=== PATIENT | male | born 1975 | race Asian ===

== ENCOUNTER 2021-04-01 10:25 | Inpatient (IN) | payer MEDICARE, MEDICAID ==
[~2021-04-01] VITALS: Ht 160 cm; Wt 74.4 kg
[2021-04-01] MEDS ORDERED: ZOLPIDEM TARTRATE 10 MG TABLET PO PRN (17:15)
[2021-04-01 18:17] VITALS: BP 144/96
[2021-04-01] MEDS: LORazepam 2 MG TABLET PO PRN (18:34)
[2021-04-01] MEDS: HALOPERIDOL 5 MG TABLET PO PRN (18:34)
[2021-04-02] MEDS: HALOPERIDOL 5 MG TABLET PO PRN ×4 (02:27→16:28)
[2021-04-02] MEDS: LORazepam 2 MG TABLET PO PRN ×3 (02:27→16:28)
[2021-04-02 09:00] VITALS: BP 143/87
[2021-04-02 16:28] VITALS: BP 124/81
[2021-04-02] MEDS ORDERED: CloNIDine HCL 0.1 MG TABLET PO PRN (21:30)
[2021-04-02] MEDS ORDERED: LOPERAMIDE HCL 2 MG CAPSULE PO PRN (21:30)
[2021-04-02] MEDS ORDERED: MAGNESIUM HYDROXIDE SUSPENSION 30 ML UDCUP PO PRN (21:30)
[2021-04-02] MEDS ORDERED: BACITRACIN 28 GM OINTMENT TP PRN (21:30)
[2021-04-02] MEDS ORDERED: ALBUTEROL SULFATE HFA 90 MCG/PUFF 8 GM INHALER IH PRN (21:30)
[2021-04-02] MEDS ORDERED: BENZOCAINE/MENTHOL LOZENGE PO PRN (21:30)
[2021-04-02] MEDS ORDERED: ACETAMINOPHEN 325 MG TABLET PO PRN (21:30)
[2021-04-02] MEDS ORDERED: DOCUSATE SODIUM 100 MG CAPSULE PO PRN (21:30)
[2021-04-02] MEDS ORDERED: OMEPRAZOLE 20 MG CAPSULE PO PRN (21:30)
[2021-04-02] MEDS ORDERED: IBUPROFEN 600 MG TABLET PO PRN (21:30)
[2021-04-02] MEDS ORDERED: MAG HYDROX/AL HYDROX/SIMETH ES 30 ML SUSPENSION UDCUP PO PRN (21:30)
[2021-04-02] MEDS ORDERED: ONDANSETRON HCL 4 MG TABLET PO PRN (21:30)
[2021-04-02] MEDS ORDERED: PETROLATUM,WHITE 28 GM JELLY TP PRN (21:30)
[2021-04-02] MEDS ORDERED: DIVA-80 PO (23:16)
[2021-04-03 01:14] VITALS: BP 132/85
[2021-04-03] MEDS: HALOPERIDOL 5 MG TABLET PO PRN (07:56)
[2021-04-03] MEDS: LORazepam 2 MG TABLET PO PRN ×3 (07:56→17:41)
[2021-04-03 08:08] VITALS: BP 139/99
[2021-04-03 08:12] VITALS: BP 139/99
[2021-04-03] MEDS ORDERED: DIVALPROEX SODIUM 500 MG DR TABLET PO SCH (09:00)
[2021-04-03 16:07] VITALS: BP 139/88
[2021-04-03] MEDS: VALPROIC ACID 250 MG/5 ML SOLUTION UDCUP PO SCH (17:00)
[2021-04-03] MEDS ORDERED: VALPROIC ACID 250 MG CAPSULE PO SCH (17:00)
[2021-04-04 05:38] VITALS: BP 124/77
[2021-04-04 07:17] LABS: BASOPHILS % (AUTO) 0.4 % (0.0-2.0); EOSINOPHILS % (AUTO) 1.8 % (1.0-6.0); HEMATOCRIT 46.5 % (41-53); HEMOGLOBIN 15.4 g/dL (13.5-17.5); LYMPHOCYTES # (AUTO) 1.8 K/uL (1.0-4.8); LYMPHOCYTES % (AUTO) 24.3 % (22.0-44.0); MEAN CORPUSCULAR HEMOGLOBIN 30.4 pg (26.0-34.0); MEAN CORPUSCULAR HGB CONC 33.2 G/dL (31.0-37.0); MEAN CORPUSCULAR VOLUME 92 fL (80-100); MONOCYTES # (AUTO) 0.6 K/uL (0.1-1.0); MONOCYTES % (AUTO) 7.6 % (2.0-9.0); NEUTROPHILS % (AUTO) 65.9 % (40.0-70.0); PLATELET COUNT (AUTO) 297 K/uL (150-450); RED BLOOD CELL COUNT(AUTO) 5.08 MIL/uL (4.50-5.90); RED CELL DISTRIBUTION WIDTH 13.7 % (11.5-14.5)
[2021-04-04 07:25] LABS: HEMOGLOBIN A1C 5.8 % (3.8-5.6)
[2021-04-04 07:38] LABS: ALANINE AMINOTRANSFERASE 43 U/L (12-78); ALBUMIN 3.9 g/dL (3.4-5.0); ALKALINE PHOSPHATASE 89 U/L (46-116); ANION GAP 14 mmol/L (8-16); ASPARTATE AMINOTRANSFERASE 28 U/L (15-37); BILIRUBIN,TOTAL 0.3 mg/dL (0.1-1.0); CALCIUM, TOTAL 9.2 mg/dL (8.8-10.5); CARBON DIOXIDE 23 mmol/L (22-29); CHLORIDE 104 mmol/L (98-107); CHOL/HDL RATIO 4.4 (4.2-7.3); CHOLESTEROL 162 mg/dL (131-200); CREATININE 0.68 mg/dL (0.60-1.30); FREE T4 (FREE THYROXINE) 1.32 ng/dL (0.76-1.46); GLOMERULAR FILTR. RATE CALC > 60 mL/min (>60); GLUCOSE,RANDOM 102 mg/dL (70-110); HDL CHOLESTEROL 37 mg/dL (40-60); LDL CHOL (CALC.) 102 mg/dL (0-130); SODIUM SERUM 141 mmol/L (136-145); THYROID STIMULATING HORMONE 1.47 uIU/mL (0.36-3.74); TOTAL PROTEIN, SERUM 8.4 g/dL (6.4-8.2); TRIGLYCERIDES 116 mg/dL (15-150); UREA NITROGEN, BLOOD 17 mg/dL (7-18)
[2021-04-04 08:11] VITALS: BP 143/88
[2021-04-04] MEDS: RisperiDONE 2 MG TABLET PO SCH ×2 (08:37→16:47)
[2021-04-04] MEDS: VALPROIC ACID 250 MG/5 ML SOLUTION UDCUP PO SCH ×2 (08:37→16:47)
[2021-04-04] MEDS ORDERED: HALOPERIDOL LACTATE 5 MG/ML VIAL IM ONE (11:30)
[2021-04-04] MEDS ORDERED: LORazepam 2 MG/ML VIAL IM ONE (11:30)
[2021-04-04 16:24] VITALS: BP 127/88
[2021-04-04] MEDS: HALOPERIDOL LACTATE 5 MG/ML VIAL IM PRN (16:50)
[2021-04-05] MEDS: VALPROIC ACID 250 MG/5 ML SOLUTION UDCUP PO SCH ×3 (08:27→17:00)
[2021-04-05] MEDS: RisperiDONE 2 MG TABLET PO SCH ×3 (08:27→17:00)
[2021-04-05] MEDS: HALOPERIDOL LACTATE 5 MG/ML VIAL IM PRN ×2 (08:45→17:17)
[2021-04-05 13:51] VITALS: BP 145/95
[2021-04-05 20:05] VITALS: BP 149/95
[2021-04-06 07:43] VITALS: BP 158/95
[2021-04-06] MEDS: LORazepam 2 MG TABLET PO PRN (08:58)
[2021-04-06] MEDS: VALPROIC ACID 250 MG/5 ML SOLUTION UDCUP PO SCH ×2 (09:00→16:53)
[2021-04-06] MEDS: RisperiDONE 2 MG TABLET PO SCH ×2 (09:00→16:53)
[2021-04-06] MEDS: HALOPERIDOL LACTATE 5 MG/ML VIAL IM PRN ×2 (09:10→17:10)
[2021-04-06 16:24] VITALS: BP 155/77
[2021-04-06] MEDS ORDERED: DiphenhydrAMINE HCL 50 MG/ML VIAL IM ONE (17:00)
[2021-04-06] MEDS ORDERED: LORazepam 2 MG/ML VIAL IM ONE (17:00)
[2021-04-06] MEDS ORDERED: HALO5TAB2 PO (17:58)
[2021-04-06] MEDS ORDERED: OLAN10TA74 PO ×2 (17:58)
[2021-04-07 04:57] VITALS: BP 151/83
[2021-04-07] MEDS: ATENOLOL 50 MG TABLET PO SCH (09:00)
[2021-04-07] MEDS: VALPROIC ACID 250 MG/5 ML SOLUTION UDCUP PO SCH ×2 (09:00→16:51)
[2021-04-07] MEDS: RisperiDONE 2 MG TABLET PO SCH ×2 (09:00→16:51)
[2021-04-07] MEDS: HALOPERIDOL LACTATE 5 MG/ML VIAL IM PRN ×2 (09:02→16:52)
[2021-04-08 08:28] VITALS: BP 145/96
[2021-04-08] MEDS: RisperiDONE 2 MG TABLET PO SCH ×2 (08:58→16:34)
[2021-04-08] MEDS: ATENOLOL 50 MG TABLET PO SCH (08:58)
[2021-04-08] MEDS: VALPROIC ACID 250 MG/5 ML SOLUTION UDCUP PO SCH ×2 (08:58→16:34)
[2021-04-08] MEDS: HALOPERIDOL LACTATE 5 MG/ML VIAL IM PRN ×2 (09:40→16:35)
[2021-04-08] MEDS ORDERED: HALOPERIDOL DECANOATE 100 MG/ML VIAL IM ONE (14:15)
[2021-04-08 16:01] VITALS: BP 147/95
[2021-04-08 17:34] VITALS: BP 147/95
[2021-04-09] MEDS ORDERED: LORazepam 2 MG/ML VIAL IM ONE ×2 (08:15→23:00)
[2021-04-09] MEDS ORDERED: DiphenhydrAMINE HCL 50 MG/ML VIAL IM ONE ×2 (08:15→23:00)
[2021-04-09] MEDS ORDERED: HALOPERIDOL LACTATE 5 MG/ML VIAL IM ONE ×2 (08:15→23:00)
[2021-04-09] MEDS: ATENOLOL 50 MG TABLET PO SCH (09:00)
[2021-04-09] MEDS: VALPROIC ACID 250 MG/5 ML SOLUTION UDCUP PO SCH ×2 (09:00→16:19)
[2021-04-09 16:11] VITALS: BP 127/83
[2021-04-09] MEDS: HALOPERIDOL LACTATE 5 MG/ML VIAL IM PRN (16:20)
[2021-04-09] MEDS: OLANZapine 7.5 MG TABLET PO SCH (21:00)
[2021-04-09] MEDS ORDERED: LORazepam 2 MG/ML VIAL ONE (22:51)
[2021-04-10 05:50] VITALS: BP 154/91
[2021-04-10] MEDS: HALOPERIDOL LACTATE 5 MG/ML VIAL IM PRN ×3 (08:13→21:07)
[2021-04-10 08:42] VITALS: BP 150/96
[2021-04-10] MEDS: ATENOLOL 50 MG TABLET PO SCH (09:00)
[2021-04-10] MEDS: VALPROIC ACID 250 MG/5 ML SOLUTION UDCUP PO SCH ×2 (09:00→17:00)
[2021-04-10] MEDS: OLANZapine 7.5 MG TABLET PO SCH (21:00)
[2021-04-11 06:03] VITALS: BP 145/92
[2021-04-11 08:02] VITALS: BP 156/99
[2021-04-11] MEDS: VALPROIC ACID 250 MG/5 ML SOLUTION UDCUP PO SCH ×2 (08:51→16:30)
[2021-04-11] MEDS: ATENOLOL 50 MG TABLET PO SCH (08:52)
[2021-04-11] MEDS: HALOPERIDOL LACTATE 5 MG/ML VIAL IM PRN ×2 (09:01→16:31)
[2021-04-11 16:10] VITALS: BP 121/90
[2021-04-11] MEDS: OLANZapine 7.5 MG TABLET PO SCH (20:36)
[2021-04-12 04:25] VITALS: BP 141/92
[2021-04-12] MEDS: VALPROIC ACID 250 MG/5 ML SOLUTION UDCUP PO SCH ×2 (08:45→16:08)
[2021-04-12] MEDS: ATENOLOL 50 MG TABLET PO SCH (08:45)
[2021-04-12] MEDS: HALOPERIDOL LACTATE 5 MG/ML VIAL IM PRN ×2 (08:46→16:09)
[2021-04-12 08:56] VITALS: BP 159/99
[2021-04-12 16:31] VITALS: BP 137/86
[2021-04-12] MEDS: OLANZapine 7.5 MG TABLET PO SCH (20:29)
[2021-04-13 05:41] VITALS: BP 142/93
[2021-04-13 08:04] VITALS: BP 154/98
[2021-04-13] MEDS: ATENOLOL 50 MG TABLET PO SCH (09:00)
[2021-04-13] MEDS: VALPROIC ACID 250 MG/5 ML SOLUTION UDCUP PO SCH ×2 (09:00→17:00)
[2021-04-13] MEDS: HALOPERIDOL LACTATE 5 MG/ML VIAL IM PRN ×2 (09:10→17:08)
[2021-04-13] MEDS: OLANZapine 7.5 MG TABLET PO SCH (20:55)
[2021-04-14 02:44] VITALS: BP 143/98
[2021-04-14 08:22] VITALS: BP 147/80
[2021-04-14] MEDS: VALPROIC ACID 250 MG/5 ML SOLUTION UDCUP PO SCH ×2 (08:42→17:00)
[2021-04-14] MEDS: HALOPERIDOL LACTATE 5 MG/ML VIAL IM PRN ×2 (08:43→17:10)
[2021-04-14] MEDS: ATENOLOL 50 MG TABLET PO SCH (08:43)
[2021-04-14 16:01] VITALS: BP 140/81
[2021-04-14] MEDS: OLANZapine 7.5 MG TABLET PO SCH (21:00)
[2021-04-15 01:38] VITALS: BP 147/91
[2021-04-15 08:12] VITALS: BP 146/99
[2021-04-15] MEDS: VALPROIC ACID 250 MG/5 ML SOLUTION UDCUP PO SCH ×2 (08:38→17:00)
[2021-04-15] MEDS: ATENOLOL 50 MG TABLET PO SCH (08:38)
[2021-04-15] MEDS: HALOPERIDOL LACTATE 5 MG/ML VIAL IM PRN (08:38)
[2021-04-15] MEDS ORDERED: LORazepam 2 MG/ML VIAL ONE (11:14)
[2021-04-15] MEDS ORDERED: DiphenhydrAMINE HCL 50 MG/ML VIAL IM ONE ×2 (11:15→21:30)
[2021-04-15] MEDS ORDERED: LORazepam 2 MG/ML VIAL IM ONE ×2 (11:15→21:30)
[2021-04-15] MEDS ORDERED: HALOPERIDOL LACTATE 5 MG/ML VIAL IM ONE (11:15)
[2021-04-15] MEDS ORDERED: HALOPERIDOL DECANOATE 100 MG/ML VIAL IM ONE (15:15)
[2021-04-15] MEDS: OLANZapine 7.5 MG TABLET PO SCH (21:00)
[2021-04-15] MEDS ORDERED: ChlorproMAZINE HCL 50 MG/2 ML AMP IM ONE (21:30)
[2021-04-15 22:30] VITALS: BP 123/73
[2021-04-16 02:14] VITALS: BP 123/73
[2021-04-16 08:51] VITALS: BP 135/92
[2021-04-16] MEDS: VALPROIC ACID 250 MG/5 ML SOLUTION UDCUP PO SCH ×2 (09:00→16:37)
[2021-04-16] MEDS: ATENOLOL 50 MG TABLET PO SCH (09:00)
[2021-04-16] MEDS: HALOPERIDOL LACTATE 5 MG/ML VIAL IM PRN ×2 (09:45→16:38)
[2021-04-16 16:02] VITALS: BP 132/80
[2021-04-16] MEDS: OLANZapine 7.5 MG TABLET PO SCH (21:00)
[2021-04-17] VITALS: BP 142/79
[2021-04-17] MEDS: HALOPERIDOL LACTATE 5 MG/ML VIAL IM PRN ×2 (08:15→16:27)
[2021-04-17] MEDS: VALPROIC ACID 250 MG/5 ML SOLUTION UDCUP PO SCH ×2 (08:33→16:27)
[2021-04-17] MEDS: ATENOLOL 50 MG TABLET PO SCH (08:33)
[2021-04-17 08:45] VITALS: BP 151/82
[2021-04-17 16:32] VITALS: BP 142/90
[2021-04-17] MEDS: OLANZapine 7.5 MG TABLET PO SCH (20:57)
[2021-04-18 00:51] VITALS: BP 148/97
[2021-04-18 08:27] VITALS: BP 120/68
[2021-04-18] MEDS: VALPROIC ACID 250 MG/5 ML SOLUTION UDCUP PO SCH ×2 (08:28→17:00)
[2021-04-18] MEDS: ATENOLOL 50 MG TABLET PO SCH (08:28)
[2021-04-18] MEDS: HALOPERIDOL LACTATE 5 MG/ML VIAL IM PRN ×2 (08:28→17:11)
[2021-04-18 17:08] VITALS: BP 143/91
[2021-04-18] MEDS: OLANZapine 7.5 MG TABLET PO SCH (20:13)
[2021-04-19 05:29] VITALS: BP 138/89
[2021-04-19] MEDS: VALPROIC ACID 250 MG/5 ML SOLUTION UDCUP PO SCH ×2 (08:38→16:02)
[2021-04-19] MEDS: HALOPERIDOL LACTATE 5 MG/ML VIAL IM PRN ×2 (08:38→16:03)
[2021-04-19] MEDS: ATENOLOL 50 MG TABLET PO SCH (08:38)
[2021-04-19 09:37] VITALS: BP 135/84
[2021-04-19 19:39] VITALS: BP 137/87
[2021-04-19] MEDS: OLANZapine 7.5 MG TABLET PO SCH (20:25)
[2021-04-20 00:54] VITALS: BP 143/88
[2021-04-20 08:22] VITALS: BP 153/92
[2021-04-20] MEDS: ATENOLOL 50 MG TABLET PO SCH (08:45)
[2021-04-20] MEDS: VALPROIC ACID 250 MG/5 ML SOLUTION UDCUP PO SCH ×2 (08:45→16:33)
[2021-04-20] MEDS: HALOPERIDOL LACTATE 5 MG/ML VIAL IM PRN ×2 (08:46→16:34)
[2021-04-20 16:30] VITALS: BP 143/92
[2021-04-20 17:26] VITALS: BP 143/92
[2021-04-20 18:30] VITALS: BP 143/92
[2021-04-20] MEDS: OLANZapine 7.5 MG TABLET PO SCH (21:00)
[2021-04-21 06:20] VITALS: BP 123/64
[2021-04-21 08:18] VITALS: BP 135/90
[2021-04-21] MEDS: HALOPERIDOL LACTATE 5 MG/ML VIAL IM PRN ×2 (08:30→16:45)
[2021-04-21] MEDS: ATENOLOL 50 MG TABLET PO SCH (09:00)
[2021-04-21] MEDS: VALPROIC ACID 250 MG/5 ML SOLUTION UDCUP PO SCH ×2 (09:00→16:45)
[2021-04-21 16:06] VITALS: BP 127/85
[2021-04-21] MEDS: OLANZapine 7.5 MG TABLET PO SCH (20:48)
[2021-04-22 05:24] VITALS: BP 135/92
[2021-04-22 08:18] VITALS: BP 134/81
[2021-04-22] MEDS: HALOPERIDOL LACTATE 5 MG/ML VIAL IM PRN ×2 (08:30→16:50)
[2021-04-22] MEDS: VALPROIC ACID 250 MG/5 ML SOLUTION UDCUP PO SCH ×2 (08:32→16:49)
[2021-04-22] MEDS: ATENOLOL 50 MG TABLET PO SCH (08:33)
[2021-04-22] MEDS ORDERED: HALOPERIDOL DECANOATE 100 MG/ML VIAL IM ONE (14:15)
[2021-04-22 16:06] VITALS: BP 141/91
[2021-04-22] MEDS: OLANZapine 7.5 MG TABLET PO SCH (21:00)
[2021-04-23 04:21] VITALS: BP 131/86
[2021-04-23 08:25] VITALS: BP 123/80
[2021-04-23] MEDS: HALOPERIDOL LACTATE 5 MG/ML VIAL IM PRN ×2 (08:55→17:41)
[2021-04-23] MEDS: VALPROIC ACID 250 MG/5 ML SOLUTION UDCUP PO SCH ×2 (09:00→17:00)
[2021-04-23] MEDS: ATENOLOL 50 MG TABLET PO SCH (09:00)
[2021-04-23 16:02] VITALS: BP 135/90
[2021-04-23 18:47] VITALS: BP 135/90
[2021-04-23] MEDS: OLANZapine 7.5 MG TABLET PO SCH (20:21)
[2021-04-24 05:29] VITALS: BP 129/81
[2021-04-24 08:17] VITALS: BP 124/74
[2021-04-24] MEDS: ATENOLOL 50 MG TABLET PO SCH (09:00)
[2021-04-24] MEDS: VALPROIC ACID 250 MG/5 ML SOLUTION UDCUP PO SCH ×2 (09:00→16:28)
[2021-04-24] MEDS: HALOPERIDOL LACTATE 5 MG/ML VIAL IM PRN ×2 (09:31→17:34)
[2021-04-24 16:00] VITALS: BP 128/84
[2021-04-24] MEDS: OLANZapine 7.5 MG TABLET PO SCH (20:24)
[2021-04-25 00:53] VITALS: BP 113/67
[2021-04-25 08:03] VITALS: BP 141/62
[2021-04-25] MEDS: VALPROIC ACID 250 MG/5 ML SOLUTION UDCUP PO SCH ×2 (09:00→16:13)
[2021-04-25] MEDS: ATENOLOL 50 MG TABLET PO SCH (09:00)
[2021-04-25] MEDS: HALOPERIDOL LACTATE 5 MG/ML VIAL IM PRN ×2 (09:09→16:14)
[2021-04-25 16:08] VITALS: BP 141/84
[2021-04-25] MEDS: OLANZapine 7.5 MG TABLET PO SCH (20:19)
[2021-04-26 02:44] VITALS: BP 118/74
[2021-04-26 08:30] VITALS: BP 133/87
[2021-04-26] MEDS: ATENOLOL 50 MG TABLET PO SCH (08:58)
[2021-04-26] MEDS: VALPROIC ACID 250 MG/5 ML SOLUTION UDCUP PO SCH ×2 (08:58→16:13)
[2021-04-26] MEDS: HALOPERIDOL LACTATE 5 MG/ML VIAL IM PRN ×2 (08:59→16:15)
[2021-04-26 16:12] VITALS: BP 135/68
[2021-04-26] MEDS: OLANZapine 7.5 MG TABLET PO SCH (20:15)
[2021-04-27 01:14] VITALS: BP 135/68
[2021-04-27 08:04] VITALS: BP 125/85
[2021-04-27] MEDS: VALPROIC ACID 250 MG/5 ML SOLUTION UDCUP PO SCH ×2 (08:28→16:09)
[2021-04-27] MEDS: ATENOLOL 50 MG TABLET PO SCH (08:28)
[2021-04-27] MEDS: HALOPERIDOL LACTATE 5 MG/ML VIAL IM PRN ×2 (08:29→16:17)
[2021-04-27] MEDS ORDERED: LORazepam 2 MG/ML VIAL IM ONE (11:45)
[2021-04-27] MEDS ORDERED: HALOPERIDOL LACTATE 5 MG/ML VIAL IM ONE (11:45)
[2021-04-27] MEDS ORDERED: LORazepam 2 MG/ML VIAL ONE (11:47)
[2021-04-27 16:40] VITALS: BP 106/66
[2021-04-27] MEDS: OLANZapine 7.5 MG TABLET PO SCH (20:36)
[2021-04-28 05:27] VITALS: BP 104/62
[2021-04-28 08:01] VITALS: BP 114/72
[2021-04-28] MEDS: ATENOLOL 50 MG TABLET PO SCH (08:38)
[2021-04-28] MEDS: VALPROIC ACID 250 MG/5 ML SOLUTION UDCUP PO SCH ×2 (08:38→16:33)
[2021-04-28] MEDS: HALOPERIDOL LACTATE 5 MG/ML VIAL IM PRN ×2 (08:38→16:34)
[2021-04-28 16:03] VITALS: BP 117/84
[2021-04-28] MEDS ORDERED: LORazepam 2 MG/ML VIAL IM ONE (19:30)
[2021-04-28] MEDS ORDERED: HALOPERIDOL LACTATE 5 MG/ML VIAL IM ONE (19:30)
[2021-04-28] MEDS ORDERED: DiphenhydrAMINE HCL 50 MG/ML VIAL IM ONE (19:30)
[2021-04-28] MEDS: OLANZapine 7.5 MG TABLET PO SCH (20:33)
[2021-04-29 01:29] VITALS: BP 140/95
[2021-04-29 08:14] VITALS: BP 132/95
[2021-04-29] MEDS: VALPROIC ACID 250 MG/5 ML SOLUTION UDCUP PO SCH ×2 (08:36→16:24)
[2021-04-29] MEDS: ATENOLOL 50 MG TABLET PO SCH (08:36)
[2021-04-29] MEDS: HALOPERIDOL LACTATE 5 MG/ML VIAL IM PRN ×2 (08:39→16:34)
[2021-04-29 20:05] VITALS: BP 117/81
[2021-04-29] MEDS: OLANZapine 7.5 MG TABLET PO SCH (21:00)
[2021-04-30 00:44] VITALS: BP 142/87
[2021-04-30 08:13] VITALS: BP 143/90
[2021-04-30] MEDS: HALOPERIDOL LACTATE 5 MG/ML VIAL IM PRN ×2 (08:23→16:27)
[2021-04-30] MEDS: ATENOLOL 50 MG TABLET PO SCH (08:23)
[2021-04-30] MEDS: VALPROIC ACID 250 MG/5 ML SOLUTION UDCUP PO SCH ×2 (08:23→16:27)
[2021-04-30 16:13] VITALS: BP 125/81
[2021-04-30] MEDS: OLANZapine 7.5 MG TABLET PO SCH (20:21)
[2021-05-01 04:09] VITALS: BP 136/84
[2021-05-01 08:08] VITALS: BP 138/87
[2021-05-01] MEDS: VALPROIC ACID 250 MG/5 ML SOLUTION UDCUP PO SCH ×2 (08:51→16:45)
[2021-05-01] MEDS: ATENOLOL 50 MG TABLET PO SCH (08:51)
[2021-05-01] MEDS: HALOPERIDOL LACTATE 5 MG/ML VIAL IM PRN ×2 (08:52→16:45)
[2021-05-01 16:16] VITALS: BP 134/90
[2021-05-01] MEDS: OLANZapine 7.5 MG TABLET PO SCH (20:22)
[2021-05-02 01:59] VITALS: BP 128/87
[2021-05-02] MEDS: VALPROIC ACID 250 MG/5 ML SOLUTION UDCUP PO SCH ×2 (09:00→17:00)
[2021-05-02] MEDS: ATENOLOL 50 MG TABLET PO SCH (09:12)
[2021-05-02 10:16] VITALS: BP 133/84
[2021-05-02] MEDS: HALOPERIDOL LACTATE 5 MG/ML VIAL IM PRN ×2 (10:26→17:21)
[2021-05-02 16:11] VITALS: BP 108/70
[2021-05-02] MEDS: OLANZapine 7.5 MG TABLET PO SCH (20:12)
[2021-05-03 00:08] VITALS: BP 102/65
[2021-05-03 08:26] VITALS: BP 103/60
[2021-05-03] MEDS: VALPROIC ACID 250 MG/5 ML SOLUTION UDCUP PO SCH ×2 (08:26→16:48)
[2021-05-03] MEDS: ATENOLOL 50 MG TABLET PO SCH (08:26)
[2021-05-03 08:28] VITALS: BP 103/60
[2021-05-03] MEDS: HALOPERIDOL LACTATE 5 MG/ML VIAL IM PRN ×2 (08:28→16:47)
[2021-05-03 15:45] LABS: COVID AG,FIA SOURCE NASAL SWAB
[2021-05-03 16:25] VITALS: BP 124/82
[2021-05-03] MEDS: OLANZapine 7.5 MG TABLET PO SCH (20:28)
[2021-05-04 04:52] VITALS: BP 121/79
[2021-05-04] MEDS: VALPROIC ACID 250 MG/5 ML SOLUTION UDCUP PO SCH ×2 (08:20→16:28)
[2021-05-04] MEDS: HALOPERIDOL LACTATE 5 MG/ML VIAL IM PRN ×2 (08:20→16:27)
[2021-05-04] MEDS: ATENOLOL 50 MG TABLET PO SCH (08:20)
[2021-05-04 08:25] VITALS: BP 130/75
[2021-05-04 09:36] VITALS: BP 130/75
[2021-05-04 16:02] VITALS: BP 118/74
[2021-05-04] MEDS: OLANZapine 7.5 MG TABLET PO SCH (20:04)
[2021-05-05 02:08] VITALS: BP 122/73
[2021-05-05 08:08] VITALS: BP 129/75
[2021-05-05 08:25] LABS: BASOPHILS % (AUTO) 0.3 % (0.0-2.0); EOSINOPHILS % (AUTO) 2.6 % (1.0-6.0); HEMATOCRIT 44.2 % (41-53); HEMOGLOBIN 14.7 g/dL (13.5-17.5); LYMPHOCYTES # (AUTO) 2.1 K/uL (1.0-4.8); MEAN CORPUSCULAR HEMOGLOBIN 30.4 pg (26.0-34.0); MEAN CORPUSCULAR HGB CONC 33.3 G/dL (31.0-37.0); MEAN CORPUSCULAR VOLUME 92 fL (80-100); MONOCYTES # (AUTO) 0.7 K/uL (0.1-1.0); MONOCYTES % (AUTO) 8.5 % (2.0-9.0); NEUTROPHILS # (AUTO) 5.6 K/uL (1.8-7.7); NEUTROPHILS % (AUTO) 64.6 % (40.0-70.0); PLATELET COUNT (AUTO) 299 K/uL (150-450); RED BLOOD CELL COUNT(AUTO) 4.84 MIL/uL (4.50-5.90); RED CELL DISTRIBUTION WIDTH 14.4 % (11.5-14.5)
[2021-05-05] MEDS: ATENOLOL 50 MG TABLET PO SCH (08:35)
[2021-05-05 08:52] LABS: ALANINE AMINOTRANSFERASE 55 U/L (12-78); ALBUMIN 3.1 g/dL (3.4-5.0); ALKALINE PHOSPHATASE 94 U/L (46-116); ANION GAP 6 mmol/L (8-16); ASPARTATE AMINOTRANSFERASE 26 U/L (15-37); BILIRUBIN,TOTAL 0.2 mg/dL (0.1-1.0); CALCIUM, TOTAL 8.7 mg/dL (8.8-10.5); CARBON DIOXIDE 27 mmol/L (22-29); CHLORIDE 104 mmol/L (98-107); CHOL/HDL RATIO 5.9 (4.2-7.3); CHOLESTEROL 183 mg/dL (131-200); CREATININE 0.78 mg/dL (0.60-1.30); GLOMERULAR FILTR. RATE CALC > 60 mL/min (>60); GLUCOSE,RANDOM 129 mg/dL (70-110); HDL CHOLESTEROL 31 mg/dL (40-60); PHOSPHORUS 3.1 mg/dL (2.5-4.9); POTASSIUM 3.9 mmol/L (3.5-5.1); SODIUM SERUM 137 mmol/L (136-145); THYROID STIMULATING HORMONE 1.54 uIU/mL (0.36-3.74); TOTAL PROTEIN, SERUM 6.9 g/dL (6.4-8.2); TRIGLYCERIDES 413 mg/dL (15-150); UREA NITROGEN, BLOOD 18 mg/dL (7-18)
[2021-05-05] MEDS ORDERED: TUBERCULIN, PURIFIED PROTEIN DERIVATIVE 5 TU/0.1 ML SYRINGE ID ONE (10:15)
[2021-05-05 16:08] VITALS: BP 128/87
[2021-05-05] MEDS: OLANZapine 7.5 MG TABLET PO SCH (21:05)
[2021-05-06 04:44] VITALS: BP 122/75
[2021-05-06 08:36] VITALS: BP 110/79
[2021-05-06] MEDS: ATENOLOL 50 MG TABLET PO SCH (09:00)
[2021-05-06 16:04] VITALS: BP 140/72
[2021-05-06] MEDS: OLANZapine 7.5 MG TABLET PO SCH (20:19)
[2021-05-07] MEDS ORDERED: CloNIDine HCL 0.1 MG TABLET PO PRN (02:45)
[2021-05-07] MEDS ORDERED: PETROLATUM,WHITE 28 GM JELLY TP PRN (02:45)
[2021-05-07] MEDS ORDERED: IBUPROFEN 600 MG TABLET PO PRN (02:45)
[2021-05-07] MEDS ORDERED: BENZOCAINE/MENTHOL LOZENGE PO PRN (02:45)
[2021-05-07] MEDS ORDERED: ALBUTEROL SULFATE HFA 90 MCG/PUFF 8 GM INHALER IH PRN (02:45)
[2021-05-07] MEDS ORDERED: BACITRACIN 28 GM OINTMENT TP PRN (02:45)
[2021-05-07] MEDS ORDERED: LOPERAMIDE HCL 2 MG CAPSULE PO PRN (02:45)
[2021-05-07] MEDS ORDERED: OMEPRAZOLE 20 MG CAPSULE PO PRN (02:45)
[2021-05-07] MEDS ORDERED: MAGNESIUM HYDROXIDE SUSPENSION 30 ML UDCUP PO PRN (02:45)
[2021-05-07] MEDS ORDERED: DOCUSATE SODIUM 100 MG CAPSULE PO PRN (02:45)
[2021-05-07] MEDS ORDERED: ONDANSETRON HCL 4 MG TABLET PO PRN (02:45)
[2021-05-07] MEDS ORDERED: MAG HYDROX/AL HYDROX/SIMETH ES 30 ML SUSPENSION UDCUP PO PRN (02:45)
[2021-05-07 04:36] VITALS: BP 129/82
[2021-05-07] MEDS: ATENOLOL 50 MG TABLET PO SCH (09:00)
[2021-05-07 10:02] VITALS: BP 118/76
[2021-05-07 16:08] VITALS: BP 121/75
[2021-05-07] MEDS: OLANZapine 7.5 MG TABLET PO SCH (20:30)
[2021-05-08 04:22] VITALS: BP 128/76
[2021-05-08 08:07] VITALS: BP 109/68
[2021-05-08] MEDS: ATENOLOL 50 MG TABLET PO SCH (09:27)
[2021-05-08 16:01] VITALS: BP 106/77
[2021-05-08] MEDS: OLANZapine 7.5 MG TABLET PO SCH (20:08)
[2021-05-09 02:39] VITALS: BP 105/64
[2021-05-09 08:19] VITALS: BP 113/68
[2021-05-09] MEDS: ATENOLOL 50 MG TABLET PO SCH (08:36)
[2021-05-09 16:02] VITALS: BP 125/75
[2021-05-09] MEDS: OLANZapine 7.5 MG TABLET PO SCH (20:31)
[2021-05-10 07:17] VITALS: BP 119/72
[2021-05-10] MEDS: ATENOLOL 50 MG TABLET PO SCH (08:35)
[2021-05-10 08:59] VITALS: BP 136/78
[2021-05-10 16:02] VITALS: BP 126/79
[2021-05-10] MEDS: OLANZapine 7.5 MG TABLET PO SCH (20:08)
[2021-05-11 05:30] VITALS: BP 110/68
[2021-05-11 07:58] VITALS: BP 125/76
[2021-05-11] MEDS: ATENOLOL 50 MG TABLET PO SCH (09:00)
[2021-05-11 16:14] VITALS: BP 137/77
[2021-05-11] MEDS: OLANZapine 7.5 MG TABLET PO SCH (20:14)
[2021-05-12 05:17] VITALS: BP 129/76
[2021-05-12] MEDS: ATENOLOL 50 MG TABLET PO SCH (09:00)
[2021-05-12 09:20] VITALS: BP 100/62
[2021-05-12 16:06] VITALS: BP 122/77
[2021-05-12] MEDS: OLANZapine 7.5 MG TABLET PO SCH (20:06)
[2021-05-13 05:38] VITALS: BP 118/78
[2021-05-13 08:30] VITALS: BP 125/82
[2021-05-13] MEDS: ATENOLOL 50 MG TABLET PO SCH (08:30)
[2021-05-13 16:15] VITALS: BP 105/66
[2021-05-13] MEDS: OLANZapine 7.5 MG TABLET PO SCH (20:09)
[2021-05-14 05:08] VITALS: BP 118/74
[2021-05-14 08:11] VITALS: BP 114/72
[2021-05-14] MEDS: ATENOLOL 50 MG TABLET PO SCH (08:40)
[2021-05-14 16:06] VITALS: BP 124/80
[2021-05-14] MEDS: OLANZapine 7.5 MG TABLET PO SCH (20:16)
[2021-05-15 01:24] VITALS: BP 112/78
[2021-05-15 08:11] VITALS: BP 112/76
[2021-05-15] MEDS: ATENOLOL 50 MG TABLET PO SCH (08:16)
[2021-05-15 16:07] VITALS: BP 122/83
[2021-05-15] MEDS: OLANZapine 7.5 MG TABLET PO SCH (20:27)
[2021-05-16 07:04] VITALS: BP 120/71
[2021-05-16 08:34] VITALS: BP 109/70
[2021-05-16] MEDS: ATENOLOL 50 MG TABLET PO SCH (09:00)
[2021-05-16] MEDS ORDERED: HALOPERIDOL DECANOATE 100 MG/ML VIAL IM SCH (09:00)
[2021-05-16] MEDS: OLANZapine 7.5 MG TABLET PO SCH (20:01)
[2021-05-17 00:59] VITALS: BP 102/66
[2021-05-17 08:04] VITALS: BP 111/66
[2021-05-17] MEDS: ATENOLOL 50 MG TABLET PO SCH (08:28)
[2021-05-17 16:19] VITALS: BP 116/74
[2021-05-17] MEDS: OLANZapine 7.5 MG TABLET PO SCH (20:49)
[2021-05-18 05:28] VITALS: BP 118/74
[2021-05-18 08:01] VITALS: BP 122/74
[2021-05-18] MEDS: ATENOLOL 50 MG TABLET PO SCH (09:00)
[2021-05-18 16:09] VITALS: BP 110/72
[2021-05-18] MEDS: OLANZapine 7.5 MG TABLET PO SCH (20:40)
[2021-05-19 05:34] VITALS: BP 110/72
[2021-05-19 08:31] VITALS: BP 125/76
[2021-05-19 16:15] VITALS: BP 121/85
[2021-05-19] MEDS: OLANZapine 7.5 MG TABLET PO SCH (20:24)
[2021-05-20 06:32] VITALS: BP 124/79
[2021-05-20 08:14] VITALS: BP 127/81
[2021-05-20 13:07] LABS: GLUCOMETER DEV NAME(LOC) POC.BV
[2021-05-20 16:10] VITALS: BP 131/73
[2021-05-20] MEDS: OLANZapine 7.5 MG TABLET PO SCH (20:04)
[2021-05-21 05:48] VITALS: BP 118/68
[2021-05-21 08:27] VITALS: BP 122/70
[2021-05-21 16:10] VITALS: BP 110/73
[2021-05-21] MEDS: OLANZapine 7.5 MG TABLET PO SCH (21:24)
[2021-05-22 00:45] VITALS: BP 139/86
[2021-05-22 08:24] VITALS: BP 139/87
[2021-05-22 16:00] VITALS: BP 105/67
[2021-05-22] MEDS: OLANZapine 7.5 MG TABLET PO SCH (20:06)
[2021-05-23 05:49] VITALS: BP 115/68
[2021-05-23 08:11] VITALS: BP 101/63
[2021-05-23] MEDS ORDERED: HALOPERIDOL DECANOATE 100 MG/ML VIAL IM SCH (09:00)
[2021-05-23 16:04] VITALS: BP 134/71
[2021-05-23] MEDS: OLANZapine 7.5 MG TABLET PO SCH (20:22)
[2021-05-24 06:08] VITALS: BP 104/72
[2021-05-24 08:47] VITALS: BP 123/77
[2021-05-24 16:05] VITALS: BP 108/61
[2021-05-24] MEDS: OLANZapine 7.5 MG TABLET PO SCH (20:07)
[2021-05-25 02:38] VITALS: BP 64/16
[2021-05-25 08:15] VITALS: BP 116/70
[2021-05-25 16:05] VITALS: BP 116/80
[2021-05-25] MEDS: OLANZapine 7.5 MG TABLET PO SCH (20:42)
[2021-05-26 06:14] VITALS: BP 101/56
[2021-05-26 08:14] VITALS: BP 113/62
[2021-05-26 16:02] VITALS: BP 116/76
[2021-05-26] MEDS: OLANZapine 7.5 MG TABLET PO SCH (20:43)
[2021-05-27 05:54] VITALS: BP 114/76
[2021-05-27 08:11] VITALS: BP 108/70
[2021-05-27 16:06] VITALS: BP 108/16
[2021-05-27] MEDS: OLANZapine 7.5 MG TABLET PO SCH (20:21)
[2021-05-28 05:16] VITALS: BP 112/74
[2021-05-28 08:37] VITALS: BP 110/69
[2021-05-28 16:02] VITALS: BP 141/86
[2021-05-28] MEDS: OLANZapine 7.5 MG TABLET PO SCH (20:25)
[2021-05-29 00:51] VITALS: BP 151/97
[2021-05-29 08:16] VITALS: BP 118/74
[2021-05-29 08:50] VITALS: BP 118/74
[2021-05-29 16:00] VITALS: BP 126/85
[2021-05-29] MEDS: OLANZapine 7.5 MG TABLET PO SCH (20:15)
[2021-05-30 00:07] VITALS: BP 142/101
[2021-05-30 09:48] VITALS: BP 140/91
[2021-05-30 16:30] VITALS: BP 116/74
[2021-05-30] MEDS: OLANZapine 7.5 MG TABLET PO SCH (20:01)
[2021-05-31 00:54] VITALS: BP 150/98
[2021-05-31 08:04] VITALS: BP 108/72
[2021-05-31 16:16] VITALS: BP 135/95
[2021-05-31] MEDS: OLANZapine 7.5 MG TABLET PO SCH (20:04)
[2021-06-01 04:24] VITALS: BP 131/91
[2021-06-01 08:00] VITALS: BP 128/90
[2021-06-01 16:04] VITALS: BP 133/87
[2021-06-01] MEDS ORDERED: LORazepam 2 MG/ML VIAL ONE (16:31)
[2021-06-01] MEDS ORDERED: DiphenhydrAMINE HCL 50 MG/ML VIAL ONE (16:31)
[2021-06-01] MEDS ORDERED: HALOPERIDOL LACTATE 5 MG/ML VIAL ONE (16:32)
[2021-06-01] MEDS ORDERED: DiphenhydrAMINE HCL 50 MG/ML VIAL IM ONE (16:45)
[2021-06-01] MEDS ORDERED: HALOPERIDOL LACTATE 5 MG/ML VIAL IM ONE (16:45)
[2021-06-01] MEDS ORDERED: LORazepam 2 MG/ML VIAL IM ONE (16:45)
[2021-06-01] MEDS: OLANZapine 7.5 MG TABLET PO SCH (21:18)
[2021-06-02 06:10] VITALS: BP 125/85
[2021-06-02 08:54] VITALS: BP 126/89
[2021-06-02 16:02] VITALS: BP 130/76
[2021-06-02] MEDS: OLANZapine 7.5 MG TABLET PO SCH (20:55)
[2021-06-02] MEDS ORDERED: DiphenhydrAMINE HCL 50 MG/ML VIAL ONE (21:39)
[2021-06-02] MEDS ORDERED: HALOPERIDOL LACTATE 5 MG/ML VIAL ONE (21:39)
[2021-06-02] MEDS ORDERED: LORazepam 2 MG/ML VIAL ONE (21:39)
[2021-06-02] MEDS ORDERED: DiphenhydrAMINE HCL 50 MG/ML VIAL IM ONE (21:45)
[2021-06-02] MEDS ORDERED: LORazepam 2 MG/ML VIAL IM ONE (21:45)
[2021-06-02] MEDS ORDERED: HALOPERIDOL LACTATE 5 MG/ML VIAL IM ONE (21:45)
[2021-06-02 22:29] VITALS: BP 157/87
[2021-06-03 05:29] VITALS: BP 125/82
[2021-06-03 08:51] VITALS: BP 140/87
[2021-06-03] MEDS ORDERED: HALOPERIDOL LACTATE 5 MG/ML VIAL IM ONE ×2 (10:45→17:45)
[2021-06-03] MEDS ORDERED: DiphenhydrAMINE HCL 50 MG/ML VIAL IM ONE (10:45)
[2021-06-03] MEDS ORDERED: LORazepam 2 MG/ML VIAL IM ONE ×2 (10:45→17:45)
[2021-06-03 16:04] VITALS: BP 136/91
[2021-06-03] MEDS: OLANZapine 7.5 MG TABLET PO SCH (21:29)
[2021-06-04 04:56] VITALS: BP 147/96
[2021-06-04 08:31] VITALS: BP 143/86
[2021-06-04] MEDS ORDERED: LORazepam 2 MG/ML VIAL IM ONE (09:30)
[2021-06-04] MEDS ORDERED: HALOPERIDOL LACTATE 5 MG/ML VIAL IM ONE (09:30)
[2021-06-04 16:01] VITALS: BP 137/85
[2021-06-04] MEDS: OLANZapine 7.5 MG TABLET PO SCH (21:18)
[2021-06-05 00:11] VITALS: BP 148/96
[2021-06-05 09:12] VITALS: BP 146/95
[2021-06-05] MEDS: OLANZapine 7.5 MG TABLET PO SCH (20:26)
[2021-06-06 08:13] VITALS: BP 121/73
[2021-06-06] MEDS ORDERED: LORazepam 2 MG/ML VIAL IM ONE (12:15)
[2021-06-06] MEDS ORDERED: HALOPERIDOL LACTATE 5 MG/ML VIAL IM ONE (12:15)
[2021-06-06 16:00] VITALS: BP 128/94
[2021-06-06] MEDS: OLANZapine 7.5 MG TABLET PO SCH (20:05)
[2021-06-07] MEDS ORDERED: HALOPERIDOL LACTATE 5 MG/ML VIAL IM ONE (08:30)
[2021-06-07] MEDS ORDERED: LORazepam 2 MG/ML VIAL IM ONE (08:30)
[2021-06-07] MEDS: HALOPERIDOL DECANOATE 100 MG/ML VIAL IM SCH (15:15)
[2021-06-07] MEDS: OLANZapine 7.5 MG TABLET PO SCH (20:03)
[2021-06-07] MEDS ORDERED: ZOLPIDEM TARTRATE 10 MG TABLET PO PRN (21:15)
[2021-06-08 06:39] VITALS: BP 120/89
[2021-06-08 16:12] VITALS: BP 128/70
[2021-06-08] MEDS: OLANZapine 7.5 MG TABLET PO SCH (21:00)
[2021-06-09 00:36] VITALS: BP 143/90
[2021-06-09 08:28] VITALS: BP 140/89
[2021-06-09] MEDS: HALOPERIDOL 5 MG TABLET PO PRN (10:25)
[2021-06-09] MEDS ORDERED: LORazepam 2 MG/ML VIAL ONE (13:34)
[2021-06-09] MEDS ORDERED: HALOPERIDOL LACTATE 5 MG/ML VIAL ONE (13:34)
[2021-06-09] MEDS ORDERED: DiphenhydrAMINE HCL 50 MG/ML VIAL ONE (13:34)
[2021-06-09] MEDS ORDERED: ChlorproMAZINE HCL 50 MG/2 ML AMP ONE (13:35)
[2021-06-09] MEDS ORDERED: ChlorproMAZINE HCL 50 MG TABLET PO PRN (13:45)
[2021-06-09] MEDS ORDERED: DiphenhydrAMINE HCL 50 MG/ML VIAL IM ONE (13:45)
[2021-06-09] MEDS ORDERED: LORazepam 2 MG/ML VIAL IM ONE (13:45)
[2021-06-09] MEDS ORDERED: ChlorproMAZINE HCL 50 MG/2 ML AMP IM ONE (13:45)
[2021-06-09] MEDS: OLANZapine 10 MG TABLET PO SCH (22:00)
[2021-06-10] MEDS ORDERED: LORazepam 2 MG/ML VIAL ONE (20:13)
[2021-06-10] MEDS ORDERED: ChlorproMAZINE HCL 50 MG/2 ML AMP IM ONE (20:30)
[2021-06-10] MEDS ORDERED: LORazepam 2 MG/ML VIAL IM ONE (20:30)
[2021-06-10] MEDS: OLANZapine 10 MG TABLET PO SCH (20:50)
[2021-06-10] MEDS: ChlorproMAZINE HCL 50 MG/2 ML AMP IM PRN (21:42)
[2021-06-11] MEDS: HALOPERIDOL 5 MG TABLET PO PRN (09:14)
[2021-06-11 16:00] VITALS: BP 135/93
[2021-06-11] MEDS: OLANZapine 10 MG TABLET PO SCH (20:50)
[2021-06-11] MEDS: ChlorproMAZINE HCL 50 MG/2 ML AMP IM PRN (20:51)
[2021-06-12 05:15] VITALS: BP 130/88
[2021-06-12 15:57] VITALS: BP 127/69
[2021-06-12 16:30] VITALS: BP 127/69
[2021-06-12] MEDS: OLANZapine 10 MG TABLET PO SCH (21:27)
[2021-06-13 05:17] VITALS: BP 149/98
[2021-06-13 08:02] VITALS: BP 145/89
[2021-06-13 16:02] VITALS: BP 152/91
[2021-06-13] MEDS: OLANZapine 10 MG TABLET PO SCH ×3 (20:44→21:35)
[2021-06-13] MEDS: ChlorproMAZINE HCL 50 MG/2 ML AMP IM PRN (21:34)
[2021-06-14 02:09] VITALS: BP 127/89
[2021-06-14 08:14] VITALS: BP 122/96
[2021-06-14 16:03] VITALS: BP 133/73
[2021-06-14] MEDS: OLANZapine 10 MG TABLET PO SCH (21:00)
[2021-06-15 02:05] VITALS: BP 127/80
[2021-06-15 08:15] VITALS: BP 132/90
[2021-06-15 08:18] VITALS: BP 132/90
[2021-06-15] MEDS ORDERED: ChlorproMAZINE HCL 50 MG/2 ML AMP IM ONE (10:00)
[2021-06-15 16:04] VITALS: BP 140/82
[2021-06-15] MEDS: OLANZapine 10 MG TABLET PO SCH (20:55)
[2021-06-16 08:10] VITALS: BP 138/86
[2021-06-16] MEDS ORDERED: ChlorproMAZINE HCL 50 MG/2 ML AMP IM ONE (10:45)
[2021-06-16 16:03] VITALS: BP 140/82
[2021-06-16] MEDS: OLANZapine 10 MG TABLET PO SCH (20:31)
[2021-06-17 06:47] VITALS: BP_SYST 152; BP_DIAS 107; BP_DIAS 117
[2021-06-17 08:24] VITALS: BP 147/110
[2021-06-17] MEDS ORDERED: LORazepam 2 MG/ML VIAL IM ONE (11:45)
[2021-06-17] MEDS ORDERED: DiphenhydrAMINE HCL 50 MG/ML VIAL IM ONE (11:45)
[2021-06-17] MEDS ORDERED: ChlorproMAZINE HCL 50 MG/2 ML AMP IM ONE (11:45)
[2021-06-17 16:18] VITALS: BP 107/74
[2021-06-17] MEDS: OLANZapine 10 MG TABLET PO SCH (21:40)
[2021-06-18 06:50] VITALS: BP 133/83
[2021-06-18 16:00] VITALS: BP 132/77
[2021-06-18] MEDS: OLANZapine 10 MG TABLET PO SCH (20:20)
[2021-06-19 01:09] VITALS: BP 131/95
[2021-06-19 16:08] VITALS: BP 128/82
[2021-06-19 16:11] VITALS: BP 128/82
[2021-06-19] MEDS: OLANZapine 10 MG TABLET PO SCH (22:07)
[2021-06-20 01:16] VITALS: BP 132/77
[2021-06-20 16:09] VITALS: BP 131/89
[2021-06-20] MEDS: OLANZapine 10 MG TABLET PO SCH (20:51)
[2021-06-21 04:26] VITALS: BP 126/84
[2021-06-21 08:13] VITALS: BP 127/89
[2021-06-21 16:10] VITALS: BP 124/88
[2021-06-21] MEDS: OLANZapine 10 MG TABLET PO SCH (20:15)
[2021-06-22 10:51] VITALS: BP 126/82
[2021-06-22 16:04] VITALS: BP 134/87
[2021-06-22] MEDS: OLANZapine 10 MG TABLET PO SCH (20:31)
[2021-06-23 00:57] VITALS: BP 129/97
[2021-06-23 08:23] VITALS: BP 121/78
[2021-06-23 16:04] VITALS: BP 128/80
[2021-06-23] MEDS: OLANZapine 10 MG TABLET PO SCH (20:56)
[2021-06-24 08:20] VITALS: BP 118/75
[2021-06-24 08:36] LABS: BASOPHILS % (AUTO) 0.8 % (0.0-2.0); EOSINOPHILS % (AUTO) 5.8 % (1.0-6.0); HEMATOCRIT 45.5 % (41-53); HEMOGLOBIN 15.5 g/dL (13.5-17.5); LYMPHOCYTES # (AUTO) 2.5 K/uL (1.0-4.8); LYMPHOCYTES % (AUTO) 23.7 % (22.0-44.0); MEAN CORPUSCULAR HEMOGLOBIN 30.8 pg (26.0-34.0); MEAN CORPUSCULAR VOLUME 91 fL (80-100); MONOCYTES # (AUTO) 0.7 K/uL (0.1-1.0); MONOCYTES % (AUTO) 6.3 % (2.0-9.0); NEUTROPHILS # (AUTO) 6.8 K/uL (1.8-7.7); NEUTROPHILS % (AUTO) 63.4 % (40.0-70.0); PLATELET COUNT (AUTO) 456 K/uL (150-450); RED BLOOD CELL COUNT(AUTO) 5.02 MIL/uL (4.50-5.90)
[2021-06-24] MEDS ORDERED: CloZAPine 25 MG TABLET PO SCH (09:00)
[2021-06-24 09:26] LABS: COVID AG,FIA SOURCE NASAL SWAB
[2021-06-24 16:08] VITALS: BP 110/67
[2021-06-24] MEDS: OLANZapine 10 MG TABLET PO SCH (20:42)
[2021-06-24] MEDS: HALOPERIDOL LACTATE 5 MG/ML VIAL IM PRN (20:44)
[2021-06-25 04:59] VITALS: BP 121/66
[2021-06-25 08:42] VITALS: BP 133/86
[2021-06-25] MEDS: ASPIRIN 81 MG DR TABLET PO SCH (09:00)
[2021-06-25] MEDS ORDERED: CloZAPine 25 MG TABLET PO SCH ×2 (09:00→21:00)
[2021-06-25] MEDS: OMEGA-3/DHA/EPA/FISH OIL 1,000 MG CAPSULE PO SCH (09:00)
[2021-06-25 16:15] VITALS: BP 122/81
[2021-06-25] MEDS: OLANZapine 10 MG TABLET PO SCH (20:33)
[2021-06-25] MEDS: HALOPERIDOL LACTATE 5 MG/ML VIAL IM PRN (20:34)
[2021-06-26 05:38] VITALS: BP 126/87
[2021-06-26 08:02] VITALS: BP 125/76
[2021-06-26] MEDS: OMEGA-3/DHA/EPA/FISH OIL 1,000 MG CAPSULE PO SCH (09:00)
[2021-06-26] MEDS ORDERED: CloZAPine 25 MG TABLET PO SCH ×2 (09:00→21:00)
[2021-06-26] MEDS: ASPIRIN 81 MG DR TABLET PO SCH (09:00)
[2021-06-26 16:00] VITALS: BP 136/76
[2021-06-26] MEDS: OLANZapine 10 MG TABLET PO SCH (20:40)
[2021-06-26] MEDS: HALOPERIDOL LACTATE 5 MG/ML VIAL IM PRN (20:42)
[2021-06-27 00:08] VITALS: BP 138/89
[2021-06-27 08:06] VITALS: BP 115/80
[2021-06-27] MEDS ORDERED: CloZAPine 25 MG TABLET PO SCH (09:00)
[2021-06-27] MEDS ORDERED: HALOPERIDOL LACTATE 5 MG/ML VIAL IM PRN (09:00)
[2021-06-27] MEDS: OMEGA-3/DHA/EPA/FISH OIL 1,000 MG CAPSULE PO SCH (09:00)
[2021-06-27] MEDS: ASPIRIN 81 MG DR TABLET PO SCH (09:00)
[2021-06-27 16:00] VITALS: BP 132/83
[2021-06-27] MEDS: OLANZapine 10 MG TABLET PO SCH (21:05)
[2021-06-28 06:42] VITALS: BP 116/75
[2021-06-28 08:00] VITALS: BP 141/75
[2021-06-28] MEDS: ASPIRIN 81 MG DR TABLET PO SCH (09:00)
[2021-06-28] MEDS: OMEGA-3/DHA/EPA/FISH OIL 1,000 MG CAPSULE PO SCH (09:00)
[2021-06-28 16:05] VITALS: BP 119/71
[2021-06-28] MEDS: OLANZapine 10 MG TABLET PO SCH (20:28)
[2021-06-29 06:14] VITALS: BP 123/79
[2021-06-29 08:15] VITALS: BP 109/16
[2021-06-29] MEDS: OMEGA-3/DHA/EPA/FISH OIL 1,000 MG CAPSULE PO SCH (09:00)
[2021-06-29] MEDS: ASPIRIN 81 MG DR TABLET PO SCH (09:00)
[2021-06-29] MEDS ORDERED: CloZAPine 25 MG TABLET PO SCH (09:00)
[2021-06-29 16:03] VITALS: BP 128/79
[2021-06-29] MEDS: OLANZapine 10 MG TABLET PO SCH (20:58)
[2021-06-29] MEDS ORDERED: CloZAPine 100 MG TABLET PO SCH (21:00)
[2021-06-29 22:00] VITALS: BP 116/78
[2021-06-30 00:43] VITALS: BP 110/71
[2021-06-30 08:25] VITALS: BP 111/69
[2021-06-30] MEDS ORDERED: CloZAPine 25 MG TABLET PO SCH (09:00)
[2021-06-30] MEDS: OMEGA-3/DHA/EPA/FISH OIL 1,000 MG CAPSULE PO SCH (09:00)
[2021-06-30] MEDS: ASPIRIN 81 MG DR TABLET PO SCH (09:00)
[2021-06-30 16:34] VITALS: BP 120/81
[2021-06-30] MEDS: OLANZapine 10 MG TABLET PO SCH (20:06)
[2021-06-30] MEDS ORDERED: CloZAPine 100 MG TABLET PO SCH (21:00)
[2021-07-01 04:37] VITALS: BP 138/72
[2021-07-01 08:27] VITALS: BP 115/71
[2021-07-01] MEDS: ASPIRIN 81 MG DR TABLET PO SCH (09:00)
[2021-07-01] MEDS ORDERED: CloZAPine 25 MG TABLET PO SCH (09:00)
[2021-07-01] MEDS: OMEGA-3/DHA/EPA/FISH OIL 1,000 MG CAPSULE PO SCH (09:00)
[2021-07-01 16:02] VITALS: BP 129/78
[2021-07-01] MEDS: OLANZapine 10 MG TABLET PO SCH (20:08)
[2021-07-01] MEDS ORDERED: CloZAPine 100 MG TABLET PO SCH (21:00)
[2021-07-02 03:06] VITALS: BP 123/68
[2021-07-02 08:17] VITALS: BP 118/65
[2021-07-02] MEDS: ASPIRIN 81 MG DR TABLET PO SCH (08:24)
[2021-07-02] MEDS: OMEGA-3/DHA/EPA/FISH OIL 1,000 MG CAPSULE PO SCH (08:24)
[2021-07-02] MEDS ORDERED: CloZAPine 100 MG TABLET PO SCH (09:00)
[2021-07-02 16:07] VITALS: BP 135/84
[2021-07-02] MEDS: OLANZapine 10 MG TABLET PO SCH (20:44)
[2021-07-03 06:15] VITALS: BP 121/72
[2021-07-03] MEDS: OMEGA-3/DHA/EPA/FISH OIL 1,000 MG CAPSULE PO SCH (08:26)
[2021-07-03] MEDS: ASPIRIN 81 MG DR TABLET PO SCH (08:26)
[2021-07-03 08:43] VITALS: BP 110/67
[2021-07-03 16:00] VITALS: BP 107/66
[2021-07-03] MEDS: OLANZapine 10 MG TABLET PO SCH (20:17)
[2021-07-04 02:13] VITALS: BP 118/69
[2021-07-04 08:21] VITALS: BP 121/63
[2021-07-04] MEDS ORDERED: CloZAPine 25 MG TABLET PO SCH (09:00)
[2021-07-04] MEDS: ASPIRIN 81 MG DR TABLET PO SCH (09:00)
[2021-07-04] MEDS: OMEGA-3/DHA/EPA/FISH OIL 1,000 MG CAPSULE PO SCH (09:00)
[2021-07-04 16:08] VITALS: BP 125/70
[2021-07-04] MEDS: OLANZapine 10 MG TABLET PO SCH (20:01)
[2021-07-04] MEDS ORDERED: CloZAPine 100 MG TABLET PO SCH (21:00)
[2021-07-05 04:30] VITALS: BP 108/68
[2021-07-05 08:02] VITALS: BP 108/71
[2021-07-05] MEDS ORDERED: CloZAPine 25 MG TABLET PO SCH (09:00)
[2021-07-05] MEDS: OMEGA-3/DHA/EPA/FISH OIL 1,000 MG CAPSULE PO SCH (09:00)
[2021-07-05] MEDS: ASPIRIN 81 MG DR TABLET PO SCH (09:00)
[2021-07-05 16:13] VITALS: BP 120/77
[2021-07-05] MEDS: OLANZapine 10 MG TABLET PO SCH (20:40)
[2021-07-05] MEDS ORDERED: CloZAPine 100 MG TABLET PO SCH (21:00)
[2021-07-06 04:32] VITALS: BP 118/66
[2021-07-06 08:24] VITALS: BP 120/72
[2021-07-06] MEDS: OMEGA-3/DHA/EPA/FISH OIL 1,000 MG CAPSULE PO SCH (09:00)
[2021-07-06] MEDS: ASPIRIN 81 MG DR TABLET PO SCH (09:00)
[2021-07-06] MEDS ORDERED: CloZAPine 100 MG TABLET PO SCH ×2 (09:00→21:00)
[2021-07-06 16:01] VITALS: BP 126/79
[2021-07-06] MEDS: OLANZapine 10 MG TABLET PO SCH (20:14)
[2021-07-07 06:21] VITALS: BP 122/74
[2021-07-07 08:12] VITALS: BP 118/72
[2021-07-07] MEDS: OMEGA-3/DHA/EPA/FISH OIL 1,000 MG CAPSULE PO SCH (09:00)
[2021-07-07] MEDS: ASPIRIN 81 MG DR TABLET PO SCH (09:00)
[2021-07-07] MEDS: HALOPERIDOL DECANOATE 100 MG/ML VIAL IM SCH (09:16)
[2021-07-07 16:04] VITALS: BP 105/82
[2021-07-07] MEDS: OLANZapine 10 MG TABLET PO SCH (20:21)
[2021-07-08 05:47] VITALS: BP 113/69
[2021-07-08] MEDS: ASPIRIN 81 MG DR TABLET PO SCH ×2 (08:26→09:39)
[2021-07-08] MEDS: OMEGA-3/DHA/EPA/FISH OIL 1,000 MG CAPSULE PO SCH ×2 (08:27→09:40)
[2021-07-08 08:29] VITALS: BP 113/76
[2021-07-08] MEDS ORDERED: HALOPERIDOL DECANOATE 100 MG/ML VIAL IM SCH (15:15)
[2021-07-08 16:03] VITALS: BP 117/70
[2021-07-08] MEDS: OLANZapine 10 MG TABLET PO SCH (20:50)
[2021-07-09 06:00] VITALS: BP 118/62
[2021-07-09 08:23] VITALS: BP 126/69
[2021-07-09] MEDS: OMEGA-3/DHA/EPA/FISH OIL 1,000 MG CAPSULE PO SCH (09:10)
[2021-07-09] MEDS: ASPIRIN 81 MG DR TABLET PO SCH (09:10)
[2021-07-09 16:02] VITALS: BP 113/66
[2021-07-09] MEDS: OLANZapine 10 MG TABLET PO SCH (20:53)
[2021-07-10 03:44] VITALS: BP 113/60
[2021-07-10 08:17] VITALS: BP 126/71
[2021-07-10 16:02] VITALS: BP 102/62
[2021-07-10] MEDS: OLANZapine 10 MG TABLET PO SCH (20:35)
[2021-07-11 00:51] VITALS: BP 105/65
[2021-07-11 07:41] LABS: GLUCOMETER DEV NAME(LOC) POC.BV
[2021-07-11 08:26] VITALS: BP 103/65
[2021-07-11 16:01] VITALS: BP 115/75
[2021-07-11] MEDS: OLANZapine 10 MG TABLET PO SCH (20:07)
[2021-07-12 05:37] VITALS: BP 120/81
[2021-07-12 10:44] VITALS: BP 116/76
[2021-07-12 16:02] VITALS: BP 125/81
[2021-07-12] MEDS: OLANZapine 10 MG TABLET PO SCH (20:08)
[2021-07-13 00:15] VITALS: BP 107/65
[2021-07-13 08:11] VITALS: BP 100/64
[2021-07-13 16:05] VITALS: BP 105/65
[2021-07-13] MEDS: OLANZapine 10 MG TABLET PO SCH (20:31)
[2021-07-14 00:09] VITALS: BP 106/68
[2021-07-14 00:12] VITALS: BP 106/68
[2021-07-14 11:58] VITALS: BP 116/75
[2021-07-14 16:11] VITALS: BP 128/76
[2021-07-14] MEDS: OLANZapine 10 MG TABLET PO SCH (20:26)
[2021-07-15 00:16] VITALS: BP 124/70
[2021-07-15 08:10] VITALS: BP 126/75
[2021-07-15 16:06] VITALS: BP 111/67
[2021-07-15] MEDS: OLANZapine 10 MG TABLET PO SCH (20:50)
[2021-07-16 00:08] VITALS: BP 121/72
[2021-07-16 08:12] VITALS: BP 105/67
[2021-07-16 16:17] VITALS: BP 109/68
[2021-07-16] MEDS: OLANZapine 10 MG TABLET PO SCH (20:43)
[2021-07-17 06:12] VITALS: BP 112/78
[2021-07-17 08:06] VITALS: BP 117/71
[2021-07-17 16:01] VITALS: BP 108/65
[2021-07-17] MEDS: OLANZapine 10 MG TABLET PO SCH (20:48)
[2021-07-18 06:10] VITALS: BP 112/75
[2021-07-18 08:13] VITALS: BP 125/74
[2021-07-18 16:22] VITALS: BP 119/77
[2021-07-18] MEDS: OLANZapine 10 MG TABLET PO SCH (20:34)
[2021-07-19 06:28] VITALS: BP 121/68
[2021-07-19 08:18] VITALS: BP 114/71
[2021-07-19 16:37] VITALS: BP 128/66
[2021-07-19] MEDS: OLANZapine 10 MG TABLET PO SCH (20:42)
[2021-07-20 06:40] VITALS: BP 120/65
[2021-07-20 08:11] VITALS: BP 105/68
[2021-07-20 16:05] VITALS: BP 103/66
[2021-07-20] MEDS: OLANZapine 10 MG TABLET PO SCH (21:02)
[2021-07-21 00:48] VITALS: BP 110/68
[2021-07-21 08:21] VITALS: BP 126/71
[2021-07-21 16:04] VITALS: BP 116/76
[2021-07-21] MEDS: HALOPERIDOL 5 MG TABLET PO PRN (16:45)
[2021-07-21] MEDS: OLANZapine 10 MG TABLET PO SCH (20:45)
[2021-07-22 05:49] VITALS: BP 116/64
[2021-07-22 09:23] VITALS: BP 122/71
[2021-07-22 16:21] VITALS: BP 100/63
[2021-07-22] MEDS: OLANZapine 10 MG TABLET PO SCH (20:40)
[2021-07-23 04:38] VITALS: BP 114/64
[2021-07-23 08:20] VITALS: BP 108/63
[2021-07-23 16:07] VITALS: BP 108/64
[2021-07-23] MEDS: OLANZapine 10 MG TABLET PO SCH (20:17)
[2021-07-24 05:20] VITALS: BP 110/71
[2021-07-24 08:40] VITALS: BP 113/60
[2021-07-24 18:08] VITALS: BP 105/71
[2021-07-24] MEDS: OLANZapine 10 MG TABLET PO SCH (20:25)
[2021-07-25 06:11] VITALS: BP 101/57
[2021-07-25 08:05] VITALS: BP 101/63
[2021-07-25 16:12] VITALS: BP 108/67
[2021-07-25] MEDS: OLANZapine 10 MG TABLET PO SCH (21:00)
[2021-07-26 08:12] VITALS: BP 105/70
[2021-07-26 16:18] VITALS: BP 98/63
[2021-07-26] MEDS: OLANZapine 10 MG TABLET PO SCH (20:34)
[2021-07-27 04:40] LABS: GLUCOMETER DEV NAME(LOC) POC.BV
[2021-07-27 06:00] VITALS: BP 108/68
[2021-07-27 08:57] VITALS: BP 125/71
[2021-07-27 16:01] VITALS: BP 114/69
[2021-07-27] MEDS: OLANZapine 10 MG TABLET PO SCH (20:39)
[2021-07-28 09:28] VITALS: BP 113/68
[2021-07-28 16:03] VITALS: BP 108/63
[2021-07-28] MEDS: OLANZapine 10 MG TABLET PO SCH (20:26)
[2021-07-29 00:24] VITALS: BP 110/64
[2021-07-29 09:00] VITALS: BP 104/61
[2021-07-29 16:21] VITALS: BP 116/73
[2021-07-29] MEDS: OLANZapine 10 MG TABLET PO SCH (20:37)
[2021-07-30 06:25] VITALS: BP 106/67
[2021-07-30 08:05] VITALS: BP 109/70
[2021-07-30 16:01] VITALS: BP 109/74
[2021-07-30] MEDS: OLANZapine 10 MG TABLET PO SCH (20:39)
[2021-07-31 02:36] VITALS: BP 136/96
[2021-07-31 08:02] VITALS: BP 116/74
[2021-07-31 16:09] VITALS: BP 104/60
[2021-07-31] MEDS: OLANZapine 10 MG TABLET PO SCH (20:20)
[2021-08-01 06:43] VITALS: BP 114/72
[2021-08-01 08:20] VITALS: BP 108/62
[2021-08-01 16:01] VITALS: BP 110/67
[2021-08-01] MEDS: OLANZapine 10 MG TABLET PO SCH (20:43)
[2021-08-02 08:05] VITALS: BP 110/76
[2021-08-02 16:01] VITALS: BP 118/70
[2021-08-02] MEDS: OLANZapine 10 MG TABLET PO SCH (20:50)
[2021-08-03 06:37] VITALS: BP 111/74
[2021-08-03 08:34] VITALS: BP 107/69
[2021-08-03 16:04] VITALS: BP 106/69
[2021-08-03] MEDS: OLANZapine 10 MG TABLET PO SCH (20:29)
[2021-08-04 05:55] VITALS: BP 105/68
[2021-08-04 07:44] VITALS: BP 116/71
[2021-08-04 14:01] VITALS: BP 116/71
[2021-08-04 16:01] VITALS: BP 128/85
[2021-08-04] MEDS: OLANZapine 10 MG TABLET PO SCH (20:22)
[2021-08-05 01:09] VITALS: BP 118/64
[2021-08-05 08:01] VITALS: BP 111/69
[2021-08-05 16:00] VITALS: BP 110/70
[2021-08-05] MEDS: OLANZapine 10 MG TABLET PO SCH (20:13)
[2021-08-06 04:16] VITALS: BP 114/68
[2021-08-06 08:41] VITALS: BP 112/63
[2021-08-06] MEDS: HALOPERIDOL DECANOATE 100 MG/ML VIAL IM SCH (09:23)
[2021-08-06 16:03] VITALS: BP 120/80
[2021-08-06] MEDS: OLANZapine 10 MG TABLET PO SCH (20:03)
[2021-08-07 00:01] VITALS: BP 102/69
[2021-08-07 08:06] VITALS: BP 111/74
[2021-08-07 16:02] VITALS: BP 122/84
[2021-08-07] MEDS: BENZTROPINE MESYLATE 2 MG TABLET PO SCH (21:38)
[2021-08-07] MEDS: OLANZapine 10 MG TABLET PO SCH (21:39)
[2021-08-08 04:06] VITALS: BP 136/89
[2021-08-08 08:10] VITALS: BP 113/75
[2021-08-08 16:01] VITALS: BP 135/75
[2021-08-08] MEDS: OLANZapine 10 MG TABLET PO SCH (20:12)
[2021-08-08] MEDS: BENZTROPINE MESYLATE 2 MG TABLET PO SCH (20:15)
[2021-08-09 08:05] VITALS: BP 116/74
[2021-08-09 16:01] VITALS: BP 110/72
[2021-08-09] MEDS: BENZTROPINE MESYLATE 2 MG TABLET PO SCH (20:48)
[2021-08-09] MEDS: OLANZapine 10 MG TABLET PO SCH (20:49)
[2021-08-10 01:20] VITALS: BP 123/78
[2021-08-10 08:57] VITALS: BP 119/68
[2021-08-10 16:00] VITALS: BP 111/73
[2021-08-10] MEDS: BENZTROPINE MESYLATE 2 MG TABLET PO SCH (20:04)
[2021-08-10] MEDS: OLANZapine 10 MG TABLET PO SCH (20:05)
[2021-08-11 00:29] VITALS: BP 114/70
[2021-08-11 14:41] VITALS: BP 111/70
[2021-08-11 16:19] LABS: GLUCOMETER DEV NAME(LOC) POC.BV
[2021-08-11 16:22] VITALS: BP 106/66
[2021-08-11] MEDS: OLANZapine 10 MG TABLET PO SCH (20:05)
[2021-08-11] MEDS: BENZTROPINE MESYLATE 2 MG TABLET PO SCH (20:05)
[2021-08-12 00:57] VITALS: BP 131/92
[2021-08-12 08:08] VITALS: BP 158/88
[2021-08-12 16:03] VITALS: BP 153/95
[2021-08-12] MEDS: BENZTROPINE MESYLATE 2 MG TABLET PO SCH (22:11)
[2021-08-12] MEDS: OLANZapine 10 MG TABLET PO SCH (22:11)
[2021-08-13 04:11] VITALS: BP 118/76
[2021-08-13] MEDS ORDERED: BENZ2TAB10 PO (06:23)
[2021-08-13] MEDS ORDERED: OLAN10TA74 PO (06:23)
[2021-08-13] MEDS ORDERED: LORazepam 2 MG/ML VIAL ONE (07:55)
[2021-08-13] MEDS ORDERED: DiphenhydrAMINE HCL 50 MG/ML VIAL ONE (07:55)
[2021-08-13] MEDS ORDERED: HALOPERIDOL LACTATE 5 MG/ML VIAL IM ONE (08:00)
[2021-08-13] MEDS ORDERED: LORazepam 2 MG/ML VIAL IM ONE (08:00)
[2021-08-13] MEDS ORDERED: DiphenhydrAMINE HCL 50 MG/ML VIAL IM ONE (08:00)
== END 2021-08-13 09:00 | DRG 885 ==
LOC: B3A 17:27
PROVIDERS: ADMIT Psychiatry & Neurology Psychiatry; ATTEND Psychiatry & Neurology Psychiatry
DX: F25.9 Schizoaffective disorder, unspecified (principal); E03.9 Hypothyroidism, unspecified; F32.9 Major depressive disorder, single episode, unspecified; F41.9 Anxiety disorder, unspecified; G47.00 Insomnia, unspecified; I10 Essential (primary) hypertension; J44.9 Chronic obstructive pulmonary disease, unspecified; K59.00 Constipation, unspecified; Z20.822 Contact with and (suspected) exposure to COVID-19; Z72.0 Tobacco use; Z71.6 Tobacco abuse counseling; Z78.1 Physical restraint status; Z88.0 Allergy status to penicillin; Z88.8 Allergy status to other drugs, medicaments and biological substances; Z79.899 Other long term (current) drug therapy
CPT/HCPCS: 71046; 80053; 80061; 83036; 83735; 84100; 84439; 84443; 85025; 87081; J1200; J1630; J1631; J2060; J3230; 36415-L1; 36415-TC

== ENCOUNTER 2021-08-20 20:31 | Inpatient (IN) | payer MEDICARE, MEDICAID ==
[~2021-08-20] VITALS: Ht 157.5 cm; Wt 73.1 kg
[~2021-08-20 20:31] MED LIST: BENZ2TAB10 PO; OLAN10TA74 PO
[2021-08-20] MEDS ORDERED: HALO100V4 IM (21:08)
[2021-08-20] MEDS ORDERED: OLAN10TA74 PO (21:08)
[2021-08-20] MEDS ORDERED: BENZ2TAB10 PO (21:08)
[2021-08-20 22:39] LABS: BASOPHILS % (AUTO) 0.2 % (0.0-2.0); EOSINOPHILS % (AUTO) 0.8 % (1.0-6.0); HEMATOCRIT 38.9 % (41-53); HEMOGLOBIN 13.4 g/dL (13.5-17.5); LYMPHOCYTES # (AUTO) 2.6 K/uL (1.0-4.8); LYMPHOCYTES % (AUTO) 18.9 % (22.0-44.0); MEAN CORPUSCULAR HEMOGLOBIN 30.3 pg (26.0-34.0); MEAN CORPUSCULAR HGB CONC 34.4 G/dL (31.0-37.0); MEAN CORPUSCULAR VOLUME 88 fL (80-100); MONOCYTES # (AUTO) 1.2 K/uL (0.1-1.0); MONOCYTES % (AUTO) 9.1 % (2.0-9.0); NEUTROPHILS # (AUTO) 9.7 K/uL (1.8-7.7); PLATELET COUNT (AUTO) 355 K/uL (150-450); RED BLOOD CELL COUNT(AUTO) 4.42 MIL/uL (4.50-5.90); RED CELL DISTRIBUTION WIDTH 14.6 % (11.5-14.5)
[2021-08-20 22:49] LABS: ANION GAP 9 mmol/L (8-16); CALCIUM, TOTAL 8.7 mg/dL (8.8-10.5); CARBON DIOXIDE 26 mmol/L (22-29); CHLORIDE 104 mmol/L (98-107); CREATININE 0.96 mg/dL (0.60-1.30); GLOMERULAR FILTR. RATE CALC > 60 mL/min (>60); GLUCOSE,RANDOM 130 mg/dL (70-110); POTASSIUM 3.6 mmol/L (3.5-5.1); SODIUM SERUM 139 mmol/L (136-145); UREA NITROGEN, BLOOD 12 mg/dL (7-18)
[2021-08-20 22:54] LABS: ALANINE AMINOTRANSFERASE 28 U/L (12-78); ALKALINE PHOSPHATASE 88 U/L (46-116); ASPARTATE AMINOTRANSFERASE 44 U/L (15-37); BILIRUBIN,TOTAL 0.3 mg/dL (0.1-1.0)
[2021-08-20] MEDS: LORazepam 2 MG TABLET PO PRN (23:18)
[2021-08-20] MEDS: HALOPERIDOL 5 MG TABLET PO PRN (23:18)
[2021-08-21 01:32] LABS: COVID AG,FIA SOURCE NASOPHARYNGEAL
[2021-08-21 03:09] LABS: CHOL/HDL RATIO 4.8 (4.2-7.3); CHOLESTEROL 145 mg/dL (131-200); HDL CHOLESTEROL 30 mg/dL (40-60); LDL CHOL (CALC.) 88 mg/dL (0-130); TRIGLYCERIDES 137 mg/dL (15-150)
[2021-08-21] MEDS: LORazepam 2 MG TABLET PO PRN ×2 (03:19→07:19)
[2021-08-21] MEDS: HALOPERIDOL 5 MG TABLET PO PRN ×3 (03:38→15:53)
[2021-08-21 12:30] VITALS: BP 148/98
[2021-08-21 16:13] VITALS: BP 139/79
[2021-08-21 19:31] LABS: APPEARANCE,URINE CLEAR (CLEAR); BILIRUBIN,URINE NEGATIVE (NEGATIVE); GLUCOSE, URINE (UA) NEGATIVE (NEGATIVE); KETONES,URINE TRACE mg/dL (NEGATIVE); LEUKOCYTE ESTERASE ,URINE NEGATIVE (NEGATIVE); NITRATE,URINE NEGATIVE (NEGATIVE); OCCULT BLOOD,URINE NEGATIVE (NEGATIVE); PROTEIN,URINE TRACE (NEGATIVE); UROBILINOGEN,URINE 0.2 mg/dL (<=1.0)
[2021-08-21 19:47] LABS: AMPHET/METH SCREEN,URINE NEGATIVE (NEGATIVE); BARBITURATE SCREEN, URINE NEGATIVE (NEGATIVE); BENZODIAZEPINES SCREEN,URINE NEGATIVE (NEGATIVE); CANNABINOID SCREEN,URINE NEGATIVE (NEGATIVE); COCAINE SCREEN,URINE NEGATIVE (NEGATIVE); METHADONE SCREEN, URINE NEGATIVE (NEGATIVE); OPIATE SCREEN,URINE NEGATIVE (NEGATIVE)
[2021-08-21 19:48] LABS: PHENCYCLIDINE SCREEN,URINE NEGATIVE (NEGATIVE)
[2021-08-22 08:00] VITALS: BP 140/99
[2021-08-22] MEDS ORDERED: CloNIDine HCL 0.1 MG TABLET PO PRN (08:00)
[2021-08-22] MEDS ORDERED: BACITRACIN 28 GM OINTMENT TP PRN (08:00)
[2021-08-22] MEDS ORDERED: MAG HYDROX/AL HYDROX/SIMETH ES 30 ML SUSPENSION UDCUP PO PRN (08:00)
[2021-08-22] MEDS ORDERED: ONDANSETRON HCL 4 MG TABLET PO PRN (08:00)
[2021-08-22] MEDS ORDERED: PETROLATUM,WHITE 28 GM JELLY TP PRN (08:00)
[2021-08-22] MEDS ORDERED: MAGNESIUM HYDROXIDE SUSPENSION 30 ML UDCUP PO PRN (08:00)
[2021-08-22] MEDS ORDERED: ALBUTEROL SULFATE HFA 90 MCG/PUFF 8 GM INHALER IH PRN (08:00)
[2021-08-22] MEDS ORDERED: BENZOCAINE/MENTHOL LOZENGE PO PRN (08:00)
[2021-08-22] MEDS ORDERED: IBUPROFEN 600 MG TABLET PO PRN (08:00)
[2021-08-22] MEDS ORDERED: OMEPRAZOLE 20 MG CAPSULE PO PRN (08:00)
[2021-08-22] MEDS ORDERED: DOCUSATE SODIUM 100 MG CAPSULE PO PRN (08:00)
[2021-08-22] MEDS ORDERED: ACETAMINOPHEN 325 MG TABLET PO PRN (08:00)
[2021-08-22] MEDS ORDERED: LOPERAMIDE HCL 2 MG CAPSULE PO PRN (08:00)
[2021-08-22] MEDS: LORazepam 2 MG TABLET PO PRN ×2 (12:25→16:40)
[2021-08-22 16:17] VITALS: BP 143/89
[2021-08-22] MEDS: HALOPERIDOL 5 MG TABLET PO PRN (16:40)
[2021-08-22] MEDS: ZOLPIDEM TARTRATE 10 MG TABLET PO PRN (20:20)
[2021-08-22] MEDS: OLANZapine 10 MG TABLET PO SCH (20:58)
[2021-08-22] MEDS: BENZTROPINE MESYLATE 2 MG TABLET PO SCH (20:58)
[2021-08-23 08:14] VITALS: BP 157/98
[2021-08-23 16:00] VITALS: BP 152/91
[2021-08-23] MEDS: LORazepam 2 MG TABLET PO PRN (16:15)
[2021-08-23] MEDS: HALOPERIDOL 5 MG TABLET PO PRN (18:36)
[2021-08-23] MEDS: BENZTROPINE MESYLATE 2 MG TABLET PO SCH (20:45)
[2021-08-23] MEDS: OLANZapine 10 MG TABLET PO SCH (20:45)
[2021-08-23] MEDS: ZOLPIDEM TARTRATE 10 MG TABLET PO PRN (21:00)
[2021-08-24 11:20] VITALS: BP 145/93
[2021-08-24 16:53] VITALS: BP 145/96
[2021-08-24] MEDS: HALOPERIDOL 5 MG TABLET PO PRN (17:15)
[2021-08-24] MEDS: BENZTROPINE MESYLATE 2 MG TABLET PO SCH (20:35)
[2021-08-24] MEDS: OLANZapine 10 MG TABLET PO SCH (20:35)
[2021-08-24] MEDS: ZOLPIDEM TARTRATE 10 MG TABLET PO PRN (22:06)
[2021-08-25 08:46] VITALS: BP 140/92
[2021-08-25] MEDS: HALOPERIDOL 5 MG TABLET PO PRN ×2 (08:52→16:07)
[2021-08-25 16:39] VITALS: BP 144/94
[2021-08-25] MEDS: OLANZapine 10 MG TABLET PO SCH (20:07)
[2021-08-25] MEDS: BENZTROPINE MESYLATE 2 MG TABLET PO SCH (20:07)
[2021-08-25] MEDS: ZOLPIDEM TARTRATE 10 MG TABLET PO PRN (21:26)
[2021-08-26] MEDS: LORazepam 2 MG TABLET PO PRN ×2 (04:41→18:00)
[2021-08-26 09:32] VITALS: BP 102/105
[2021-08-26 16:22] VITALS: BP 147/87
[2021-08-26] MEDS: HALOPERIDOL 5 MG TABLET PO PRN (18:00)
[2021-08-26] MEDS: BENZTROPINE MESYLATE 2 MG TABLET PO SCH (20:16)
[2021-08-26] MEDS: OLANZapine 10 MG TABLET PO SCH (20:16)
[2021-08-26] MEDS: ZOLPIDEM TARTRATE 10 MG TABLET PO PRN (20:30)
[2021-08-27] MEDS: LORazepam 2 MG TABLET PO PRN ×2 (07:47→17:44)
[2021-08-27] MEDS: HALOPERIDOL 5 MG TABLET PO PRN ×2 (07:47→17:44)
[2021-08-27 08:00] VITALS: BP 123/76
[2021-08-27 16:35] VITALS: BP 144/86
[2021-08-27] MEDS: OLANZapine 10 MG TABLET PO SCH (20:31)
[2021-08-27] MEDS: BENZTROPINE MESYLATE 2 MG TABLET PO SCH (20:31)
[2021-08-28 10:53] VITALS: BP 135/85
[2021-08-28] MEDS: ATENOLOL 25 MG TABLET PO SCH (15:39)
[2021-08-28 16:30] VITALS: BP 133/92
[2021-08-28] MEDS: BENZTROPINE MESYLATE 2 MG TABLET PO SCH ×2 (20:23→20:24)
[2021-08-28] MEDS: OLANZapine 10 MG TABLET PO SCH (20:23)
[2021-08-29] MEDS: ATENOLOL 25 MG TABLET PO SCH (08:53)
[2021-08-29 11:41] VITALS: BP 124/68
[2021-08-29 16:17] VITALS: BP 124/73
[2021-08-29] MEDS: BENZTROPINE MESYLATE 2 MG TABLET PO SCH (20:13)
[2021-08-29] MEDS: OLANZapine 10 MG TABLET PO SCH (20:13)
[2021-08-30 06:09] VITALS: BP 124/70
[2021-08-30 08:14] VITALS: BP 129/83
[2021-08-30] MEDS: ATENOLOL 25 MG TABLET PO SCH (08:26)
[2021-08-30 16:09] VITALS: BP 125/81
[2021-08-30] MEDS: HALOPERIDOL 5 MG TABLET PO PRN (16:26)
[2021-08-30] MEDS: LORazepam 2 MG TABLET PO PRN (16:26)
[2021-08-30] MEDS: ZOLPIDEM TARTRATE 10 MG TABLET PO PRN (20:32)
[2021-08-30] MEDS: OLANZapine 10 MG TABLET PO SCH (20:32)
[2021-08-30] MEDS: BENZTROPINE MESYLATE 2 MG TABLET PO SCH (20:32)
[2021-08-31 04:09] VITALS: BP 101/76
[2021-08-31 08:06] VITALS: BP 118/68
[2021-08-31] MEDS: ATENOLOL 25 MG TABLET PO SCH (09:40)
[2021-08-31] MEDS: HALOPERIDOL DECANOATE 100 MG/ML VIAL IM SCH (14:25)
[2021-08-31 16:10] VITALS: BP 144/86
[2021-08-31] MEDS: HALOPERIDOL 5 MG TABLET PO PRN ×2 (16:22→16:58)
[2021-08-31] MEDS: LORazepam 2 MG TABLET PO PRN ×2 (16:22→16:58)
[2021-08-31] MEDS: DIVALPROEX SODIUM 500 MG DR TABLET PO SCH (16:58)
[2021-08-31] MEDS: BENZTROPINE MESYLATE 2 MG TABLET PO SCH (20:45)
[2021-08-31] MEDS: OLANZapine 10 MG TABLET PO SCH (20:45)
[2021-08-31] MEDS: ZOLPIDEM TARTRATE 10 MG TABLET PO PRN (20:46)
[2021-09-01 04:47] VITALS: BP 141/91
[2021-09-01 08:26] VITALS: BP 129/81
[2021-09-01] MEDS: ATENOLOL 25 MG TABLET PO SCH (08:26)
[2021-09-01] MEDS: DIVALPROEX SODIUM 500 MG DR TABLET PO SCH ×2 (08:26→16:10)
[2021-09-01 16:04] VITALS: BP 127/76
[2021-09-01] MEDS: OLANZapine 10 MG TABLET PO SCH (21:01)
[2021-09-01] MEDS: BENZTROPINE MESYLATE 2 MG TABLET PO SCH (21:01)
[2021-09-02 05:15] VITALS: BP 130/80
[2021-09-02 08:04] VITALS: BP 134/84
[2021-09-02] MEDS: ATENOLOL 50 MG TABLET PO SCH (09:00)
[2021-09-02] MEDS: DIVALPROEX SODIUM 500 MG DR TABLET PO SCH ×2 (09:00→16:55)
[2021-09-02 16:03] VITALS: BP 138/87
[2021-09-02] MEDS: LORazepam 2 MG TABLET PO PRN (16:55)
[2021-09-02] MEDS: HALOPERIDOL 5 MG TABLET PO PRN (16:55)
[2021-09-02] MEDS: ZOLPIDEM TARTRATE 10 MG TABLET PO PRN (20:27)
[2021-09-02] MEDS: BENZTROPINE MESYLATE 2 MG TABLET PO SCH (20:27)
[2021-09-02] MEDS: OLANZapine 10 MG TABLET PO SCH (20:27)
[2021-09-03 00:45] VITALS: BP 136/83
[2021-09-03] MEDS: HALOPERIDOL 5 MG TABLET PO PRN (08:17)
[2021-09-03] MEDS: LORazepam 2 MG TABLET PO PRN (08:17)
[2021-09-03 08:38] VITALS: BP 117/76
[2021-09-03] MEDS: ATENOLOL 50 MG TABLET PO SCH (09:00)
[2021-09-03] MEDS: DIVALPROEX SODIUM 500 MG DR TABLET PO SCH ×2 (09:00→16:11)
[2021-09-03 16:26] VITALS: BP 128/76
[2021-09-03] MEDS: BENZTROPINE MESYLATE 2 MG TABLET PO SCH (20:24)
[2021-09-03] MEDS: OLANZapine 10 MG TABLET PO SCH (20:24)
[2021-09-03] MEDS: ZOLPIDEM TARTRATE 10 MG TABLET PO PRN (20:24)
[2021-09-04 03:59] VITALS: BP 128/87
[2021-09-04 07:22] LABS: COVID AG,FIA SOURCE NASOPHARYNGEAL
[2021-09-04 08:31] VITALS: BP 124/66
[2021-09-04] MEDS: ATENOLOL 50 MG TABLET PO SCH (08:52)
[2021-09-04 16:09] VITALS: BP 118/67
[2021-09-04] MEDS: BENZTROPINE MESYLATE 2 MG TABLET PO SCH (20:41)
[2021-09-04] MEDS: OLANZapine 10 MG TABLET PO SCH (20:42)
[2021-09-05 00:22] VITALS: BP 114/75
[2021-09-05 08:18] VITALS: BP 118/67
[2021-09-05] MEDS: ATENOLOL 50 MG TABLET PO SCH (08:24)
[2021-09-05 16:08] VITALS: BP 134/82
[2021-09-05] MEDS: HALOPERIDOL 5 MG TABLET PO PRN (16:11)
[2021-09-05] MEDS: LORazepam 2 MG TABLET PO PRN (16:11)
[2021-09-05] MEDS: OLANZapine 10 MG TABLET PO SCH (20:33)
[2021-09-05] MEDS: BENZTROPINE MESYLATE 2 MG TABLET PO SCH (20:33)
[2021-09-06 06:25] VITALS: BP 126/83
[2021-09-06 08:08] VITALS: BP 118/72
[2021-09-06] MEDS: ATENOLOL 50 MG TABLET PO SCH (08:29)
[2021-09-06] MEDS: LORazepam 2 MG TABLET PO PRN ×2 (08:31→16:27)
[2021-09-06] MEDS: HALOPERIDOL 5 MG TABLET PO PRN (16:27)
[2021-09-06 16:30] VITALS: BP 129/84
[2021-09-06] MEDS: BENZTROPINE MESYLATE 2 MG TABLET PO SCH (20:03)
[2021-09-06] MEDS: OLANZapine 10 MG TABLET PO SCH (20:03)
[2021-09-07 02:41] VITALS: BP 122/81
[2021-09-07 08:08] VITALS: BP 122/81
[2021-09-07] MEDS: ATENOLOL 50 MG TABLET PO SCH (08:21)
[2021-09-07 16:15] VITALS: BP 124/76
[2021-09-07] MEDS: BENZTROPINE MESYLATE 2 MG TABLET PO SCH (20:05)
[2021-09-07] MEDS: OLANZapine 10 MG TABLET PO SCH (20:05)
[2021-09-08] VITALS: BP 112/70
[2021-09-08 08:02] VITALS: BP 144/89
[2021-09-08] MEDS: ATENOLOL 50 MG TABLET PO SCH (08:49)
[2021-09-08 16:16] VITALS: BP 136/80
[2021-09-08] MEDS: BENZTROPINE MESYLATE 2 MG TABLET PO SCH (20:26)
[2021-09-08] MEDS: OLANZapine 10 MG TABLET PO SCH (20:26)
[2021-09-09 03:48] VITALS: BP 131/83
[2021-09-09 07:54] VITALS: BP 104/65
[2021-09-09] MEDS: ATENOLOL 50 MG TABLET PO SCH (08:30)
[2021-09-09 09:19] VITALS: BP 104/65
[2021-09-09 16:13] VITALS: BP 110/70
[2021-09-09] MEDS: BENZTROPINE MESYLATE 2 MG TABLET PO SCH (20:01)
[2021-09-09] MEDS: OLANZapine 10 MG TABLET PO SCH (20:01)
[2021-09-10 04:42] VITALS: BP 110/65
[2021-09-10 08:08] VITALS: BP 143/80
[2021-09-10 08:14] LABS: BAND NEUTROPHILS % (MANUAL) 0 % (0-5)
[2021-09-10 08:18] LABS: HEMATOCRIT 44.5 % (41-53); HEMOGLOBIN 15.4 g/dL (13.5-17.5); MEAN CORPUSCULAR HEMOGLOBIN 30.4 pg (26.0-34.0); MEAN CORPUSCULAR HGB CONC 34.5 G/dL (31.0-37.0); MEAN CORPUSCULAR VOLUME 88 fL (80-100); PLATELET COUNT (AUTO) 330 K/uL (150-450); RED BLOOD CELL COUNT(AUTO) 5.06 MIL/uL (4.50-5.90)
[2021-09-10] MEDS: ATENOLOL 50 MG TABLET PO SCH (08:40)
[2021-09-10 08:53] LABS: ANION GAP 7 mmol/L (8-16); CALCIUM, TOTAL 9.1 mg/dL (8.8-10.5); CARBON DIOXIDE 27 mmol/L (22-29); CHLORIDE 105 mmol/L (98-107); CHOL/HDL RATIO 5.3 (4.2-7.3); CHOLESTEROL 158 mg/dL (131-200); CREATININE 0.85 mg/dL (0.60-1.30); GLOMERULAR FILTR. RATE CALC > 60 mL/min (>60); GLUCOSE,RANDOM 115 mg/dL (70-110); HDL CHOLESTEROL 30 mg/dL (40-60); LDL CHOL (CALC.) 84 mg/dL (0-130); PHOSPHORUS 3.9 mg/dL (2.5-4.9); POTASSIUM 3.9 mmol/L (3.5-5.1); SODIUM SERUM 139 mmol/L (136-145); THYROID STIMULATING HORMONE 1.29 uIU/mL (0.36-3.74); TRIGLYCERIDES 222 mg/dL (15-150); UREA NITROGEN, BLOOD 19 mg/dL (7-18)
[2021-09-10 09:44] LABS: LYMPHOCYTES % (MANUAL) 32 % (22-44); MONOCYTES % (MANUAL) 1 % (2-9); SEGMENTED NEUTROPHILS % 67 % (40-70)
[2021-09-10] MEDS ORDERED: TUBERCULIN, PURIFIED PROTEIN DERIVATIVE 5 TU/0.1 ML SYRINGE ID ONE (14:00)
[2021-09-10 16:15] VITALS: BP 103/65
[2021-09-10] MEDS: OLANZapine 10 MG TABLET PO SCH (20:10)
[2021-09-10] MEDS: BENZTROPINE MESYLATE 2 MG TABLET PO SCH (20:10)
[2021-09-11 05:44] VITALS: BP 112/65
[2021-09-11 08:07] VITALS: BP 114/69
[2021-09-11] MEDS: ATENOLOL 50 MG TABLET PO SCH (08:46)
[2021-09-11 15:58] VITALS: BP 113/65
[2021-09-11 19:03] VITALS: BP 113/65
[2021-09-11] MEDS: BENZTROPINE MESYLATE 2 MG TABLET PO SCH (20:04)
[2021-09-11] MEDS: OLANZapine 10 MG TABLET PO SCH (20:04)
[2021-09-12 00:32] VITALS: BP 118/77
[2021-09-12] MEDS: ATENOLOL 50 MG TABLET PO SCH (08:19)
[2021-09-12 08:39] VITALS: BP 120/70
[2021-09-12 16:21] VITALS: BP 110/68
[2021-09-12] MEDS: BENZTROPINE MESYLATE 2 MG TABLET PO SCH (20:15)
[2021-09-12] MEDS: OLANZapine 10 MG TABLET PO SCH (20:15)
[2021-09-13 00:36] VITALS: BP 123/78
[2021-09-13 09:17] VITALS: BP 115/67
[2021-09-13] MEDS: ATENOLOL 50 MG TABLET PO SCH (09:23)
[2021-09-13] MEDS ORDERED: TUBERCULIN, PURIFIED PROTEIN DERIVATIVE 5 TU/0.1 ML SYRINGE ID ONE (13:30)
[2021-09-13 16:02] VITALS: BP 116/72
[2021-09-13] MEDS: OLANZapine 10 MG TABLET PO SCH (20:39)
[2021-09-13] MEDS: BENZTROPINE MESYLATE 2 MG TABLET PO SCH (20:39)
[2021-09-13 21:51] LABS: GLUCOMETER DEV NAME(LOC) POC.BV
[2021-09-14 00:41] VITALS: BP 121/76
[2021-09-14 08:13] VITALS: BP 124/70
[2021-09-14] MEDS: ATENOLOL 50 MG TABLET PO SCH (08:20)
[2021-09-14 16:01] VITALS: BP 108/63
[2021-09-14] MEDS: OLANZapine 10 MG TABLET PO SCH (20:09)
[2021-09-14] MEDS: BENZTROPINE MESYLATE 2 MG TABLET PO SCH (20:09)
[2021-09-15 00:55] VITALS: BP 117/74
[2021-09-15 08:10] VITALS: BP 100/61
[2021-09-15] MEDS: ATENOLOL 50 MG TABLET PO SCH (08:32)
[2021-09-15 15:06] LABS: GLUCOMETER DEV NAME(LOC) POC.BV
[2021-09-15] MEDS: HALOPERIDOL 5 MG TABLET PO PRN (16:37)
[2021-09-15 18:23] VITALS: BP 108/68
[2021-09-15] MEDS: OLANZapine 10 MG TABLET PO SCH (20:12)
[2021-09-15] MEDS: BENZTROPINE MESYLATE 2 MG TABLET PO SCH (20:12)
[2021-09-16 00:07] VITALS: BP 110/68
[2021-09-16 01:31] VITALS: BP 112/64
[2021-09-16 08:14] VITALS: BP 104/63
[2021-09-16] MEDS: ATENOLOL 50 MG TABLET PO SCH (08:14)
[2021-09-16 16:00] VITALS: BP 140/83
[2021-09-16] MEDS: OLANZapine 10 MG TABLET PO SCH (20:51)
[2021-09-16] MEDS: BENZTROPINE MESYLATE 2 MG TABLET PO SCH (20:51)
[2021-09-17 04:45] VITALS: BP 128/76
[2021-09-17 08:11] VITALS: BP 112/66
[2021-09-17] MEDS: ATENOLOL 50 MG TABLET PO SCH (08:47)
[2021-09-17 16:03] VITALS: BP 106/62
[2021-09-17] MEDS: OLANZapine 10 MG TABLET PO SCH (20:37)
[2021-09-17] MEDS: BENZTROPINE MESYLATE 2 MG TABLET PO SCH (20:37)
[2021-09-18 05:18] VITALS: BP 110/64
[2021-09-18 08:08] VITALS: BP 110/66
[2021-09-18] MEDS: ATENOLOL 50 MG TABLET PO SCH (08:18)
[2021-09-18 09:41] LABS: GLUCOMETER DEV NAME(LOC) POC.BV
[2021-09-18 16:02] VITALS: BP 103/65
[2021-09-18] MEDS: BENZTROPINE MESYLATE 2 MG TABLET PO SCH (20:08)
[2021-09-18] MEDS: OLANZapine 10 MG TABLET PO SCH (20:08)
[2021-09-19 04:45] VITALS: BP 100/69
[2021-09-19 08:00] VITALS: BP 112/70
[2021-09-19] MEDS: ATENOLOL 50 MG TABLET PO SCH (08:25)
[2021-09-19 09:28] VITALS: BP 112/70
[2021-09-19 16:02] VITALS: BP 108/65
[2021-09-19] MEDS: BENZTROPINE MESYLATE 2 MG TABLET PO SCH (20:02)
[2021-09-19] MEDS: OLANZapine 10 MG TABLET PO SCH (20:02)
[2021-09-20 00:17] VITALS: BP 110/63
[2021-09-20 08:00] VITALS: BP 112/74
[2021-09-20] MEDS: ATENOLOL 50 MG TABLET PO SCH (08:11)
[2021-09-20 16:02] VITALS: BP 109/73
[2021-09-20] MEDS: BENZTROPINE MESYLATE 2 MG TABLET PO SCH (20:00)
[2021-09-20] MEDS: OLANZapine 10 MG TABLET PO SCH (20:00)
[2021-09-21 00:05] VITALS: BP 106/68
[2021-09-21] MEDS: ATENOLOL 50 MG TABLET PO SCH (08:01)
[2021-09-21 08:15] VITALS: BP 117/71
[2021-09-21 11:16] LABS: GLUCOMETER DEV NAME(LOC) POC.BV
[2021-09-21 17:52] VITALS: BP 108/67
[2021-09-21] MEDS: BENZTROPINE MESYLATE 2 MG TABLET PO SCH (20:29)
[2021-09-21] MEDS: OLANZapine 10 MG TABLET PO SCH (20:29)
[2021-09-22 00:07] VITALS: BP 114/64
[2021-09-22 08:01] VITALS: BP 104/69
[2021-09-22] MEDS: ATENOLOL 50 MG TABLET PO SCH (09:00)
[2021-09-22 16:08] VITALS: BP 105/59
[2021-09-22] MEDS: BENZTROPINE MESYLATE 2 MG TABLET PO SCH (20:04)
[2021-09-22] MEDS: OLANZapine 10 MG TABLET PO SCH (20:04)
[2021-09-23 04:46] VITALS: BP 110/66
[2021-09-23 08:02] VITALS: BP 106/62
[2021-09-23] MEDS: ATENOLOL 50 MG TABLET PO SCH (08:15)
[2021-09-23 16:03] VITALS: BP 114/63
[2021-09-23] MEDS: BENZTROPINE MESYLATE 2 MG TABLET PO SCH (20:18)
[2021-09-23] MEDS: OLANZapine 10 MG TABLET PO SCH (20:18)
[2021-09-24 00:40] VITALS: BP 109/64
[2021-09-24 08:06] VITALS: BP 97/55
[2021-09-24] MEDS: ATENOLOL 50 MG TABLET PO SCH (08:14)
[2021-09-24 13:22] VITALS: BP 116/68
[2021-09-24 16:32] VITALS: BP 110/72
[2021-09-24] MEDS: OLANZapine 10 MG TABLET PO SCH (20:13)
[2021-09-24] MEDS: BENZTROPINE MESYLATE 2 MG TABLET PO SCH (20:13)
[2021-09-25 00:26] VITALS: BP 106/82
[2021-09-25 08:08] VITALS: BP 110/76
[2021-09-25] MEDS: ATENOLOL 50 MG TABLET PO SCH (08:27)
[2021-09-25 13:41] LABS: GLUCOMETER DEV NAME(LOC) POC.BV
[2021-09-25 16:02] VITALS: BP 112/71
[2021-09-25] MEDS: OLANZapine 10 MG TABLET PO SCH (20:02)
[2021-09-25] MEDS: BENZTROPINE MESYLATE 2 MG TABLET PO SCH (20:02)
[2021-09-26 00:53] VITALS: BP 108/72
[2021-09-26] MEDS: ATENOLOL 50 MG TABLET PO SCH (08:01)
[2021-09-26 08:27] VITALS: BP 118/76
[2021-09-26 16:28] VITALS: BP 101/64
[2021-09-26] MEDS: BENZTROPINE MESYLATE 2 MG TABLET PO SCH (20:25)
[2021-09-26] MEDS: OLANZapine 10 MG TABLET PO SCH (20:25)
[2021-09-27 00:30] VITALS: BP 111/70
[2021-09-27 08:26] VITALS: BP 141/89
[2021-09-27] MEDS: ATENOLOL 50 MG TABLET PO SCH (08:28)
[2021-09-27 16:01] VITALS: BP 104/67
[2021-09-27] MEDS: BENZTROPINE MESYLATE 2 MG TABLET PO SCH (20:12)
[2021-09-27] MEDS: OLANZapine 10 MG TABLET PO SCH (20:12)
[2021-09-28 05:55] VITALS: BP 112/68
[2021-09-28 08:18] VITALS: BP 100/64
[2021-09-28] MEDS: ATENOLOL 50 MG TABLET PO SCH (09:00)
[2021-09-28] MEDS: HALOPERIDOL DECANOATE 100 MG/ML VIAL IM SCH (09:05)
[2021-09-28 09:09] VITALS: BP 105/68
[2021-09-28 16:55] VITALS: BP 104/66
[2021-09-28] MEDS: BENZTROPINE MESYLATE 2 MG TABLET PO SCH (20:14)
[2021-09-28] MEDS: OLANZapine 10 MG TABLET PO SCH (20:14)
[2021-09-29 00:05] VITALS: BP 101/62
[2021-09-29] MEDS: ATENOLOL 50 MG TABLET PO SCH (08:03)
[2021-09-29 08:15] VITALS: BP 128/79
[2021-09-29 16:02] VITALS: BP 107/62
[2021-09-29] MEDS: BENZTROPINE MESYLATE 2 MG TABLET PO SCH (20:05)
[2021-09-29] MEDS: OLANZapine 10 MG TABLET PO SCH (20:05)
[2021-09-30 03:20] VITALS: BP 110/68
[2021-09-30 08:03] VITALS: BP 118/65
[2021-09-30] MEDS: ATENOLOL 50 MG TABLET PO SCH (08:20)
[2021-09-30 16:04] VITALS: BP 115/72
[2021-09-30] MEDS: OLANZapine 10 MG TABLET PO SCH (20:26)
[2021-09-30] MEDS: BENZTROPINE MESYLATE 2 MG TABLET PO SCH (20:26)
[2021-10-01 00:01] VITALS: BP 120/57
[2021-10-01 08:40] VITALS: BP 110/69
[2021-10-01] MEDS: ATENOLOL 50 MG TABLET PO SCH (08:47)
[2021-10-01 08:55] VITALS: BP 103/64
[2021-10-01 16:04] VITALS: BP 103/61
[2021-10-01] MEDS: BENZTROPINE MESYLATE 2 MG TABLET PO SCH (20:08)
[2021-10-01] MEDS: OLANZapine 10 MG TABLET PO SCH (20:08)
[2021-10-02 00:02] VITALS: BP 105/60
[2021-10-02] MEDS: ATENOLOL 50 MG TABLET PO SCH (08:22)
[2021-10-02 10:00] VITALS: BP 111/71
[2021-10-02 16:01] VITALS: BP 103/59
[2021-10-02] MEDS: OLANZapine 10 MG TABLET PO SCH (20:36)
[2021-10-02] MEDS: BENZTROPINE MESYLATE 2 MG TABLET PO SCH (20:44)
[2021-10-03 00:30] VITALS: BP 101/61
[2021-10-03 08:00] VITALS: BP 102/62
[2021-10-03] MEDS: ATENOLOL 50 MG TABLET PO SCH (09:00)
[2021-10-03 09:25] VITALS: BP 101/60
[2021-10-03 16:01] VITALS: BP 105/67
[2021-10-03] MEDS: OLANZapine 10 MG TABLET PO SCH (20:08)
[2021-10-03] MEDS: BENZTROPINE MESYLATE 2 MG TABLET PO SCH (20:09)
[2021-10-04 00:15] VITALS: BP 112/63
[2021-10-04 08:23] VITALS: BP 110/63
[2021-10-04] MEDS: ATENOLOL 50 MG TABLET PO SCH (08:23)
[2021-10-04 16:04] VITALS: BP 103/60
[2021-10-04] MEDS: OLANZapine 10 MG TABLET PO SCH (20:51)
[2021-10-04] MEDS: BENZTROPINE MESYLATE 2 MG TABLET PO SCH (20:51)
[2021-10-05 01:34] VITALS: BP 110/59
[2021-10-05 07:52] VITALS: BP 100/62
[2021-10-05 08:10] VITALS: BP 100/62
[2021-10-05] MEDS: ATENOLOL 50 MG TABLET PO SCH (08:20)
[2021-10-05 16:00] VITALS: BP 101/62
[2021-10-05] MEDS: BENZTROPINE MESYLATE 2 MG TABLET PO SCH (20:28)
[2021-10-05] MEDS: OLANZapine 10 MG TABLET PO SCH (20:29)
[2021-10-06 04:27] VITALS: BP 123/67
[2021-10-06 08:13] VITALS: BP 121/70
[2021-10-06] MEDS: ATENOLOL 50 MG TABLET PO SCH (08:30)
[2021-10-06 16:10] VITALS: BP 105/58
[2021-10-06] MEDS: BENZTROPINE MESYLATE 2 MG TABLET PO SCH (20:49)
[2021-10-06] MEDS: OLANZapine 10 MG TABLET PO SCH (20:49)
[2021-10-07 06:07] VITALS: BP 112/60
[2021-10-07 08:13] VITALS: BP 112/75
[2021-10-07] MEDS: ATENOLOL 50 MG TABLET PO SCH (08:18)
[2021-10-07 16:07] VITALS: BP 104/62
[2021-10-07] MEDS: OLANZapine 10 MG TABLET PO SCH (20:26)
[2021-10-07] MEDS: BENZTROPINE MESYLATE 2 MG TABLET PO SCH (20:26)
[2021-10-08 05:07] VITALS: BP 112/70
[2021-10-08 08:14] VITALS: BP 98/60
[2021-10-08] MEDS: ATENOLOL 50 MG TABLET PO SCH (09:00)
[2021-10-08 16:04] VITALS: BP 103/62
[2021-10-08] MEDS: OLANZapine 10 MG TABLET PO SCH (20:35)
[2021-10-08] MEDS: BENZTROPINE MESYLATE 2 MG TABLET PO SCH (20:35)
[2021-10-09 05:23] VITALS: BP 108/67
[2021-10-09 08:16] VITALS: BP 105/64
[2021-10-09 08:49] VITALS: BP 112/67
[2021-10-09] MEDS: ATENOLOL 50 MG TABLET PO SCH (08:50)
[2021-10-09 15:58] VITALS: BP 109/62
[2021-10-09 18:13] VITALS: BP 114/70
[2021-10-09] MEDS: OLANZapine 10 MG TABLET PO SCH (20:29)
[2021-10-09] MEDS: BENZTROPINE MESYLATE 2 MG TABLET PO SCH (20:30)
[2021-10-10 03:06] VITALS: BP 122/71
[2021-10-10 08:17] VITALS: BP 92/58
[2021-10-10] MEDS: ATENOLOL 50 MG TABLET PO SCH (08:29)
[2021-10-10 16:07] VITALS: BP 103/62
[2021-10-10] MEDS: OLANZapine 10 MG TABLET PO SCH (20:31)
[2021-10-10] MEDS: BENZTROPINE MESYLATE 2 MG TABLET PO SCH (20:32)
[2021-10-11 01:48] VITALS: BP 109/60
[2021-10-11 08:03] VITALS: BP 120/68
[2021-10-11] MEDS: ATENOLOL 50 MG TABLET PO SCH (08:31)
[2021-10-11 09:06] LABS: GLUCOMETER DEV NAME(LOC) POC.BV
[2021-10-11 16:03] VITALS: BP 103/66
[2021-10-11] MEDS: OLANZapine 10 MG TABLET PO SCH (20:46)
[2021-10-11] MEDS: BENZTROPINE MESYLATE 2 MG TABLET PO SCH (20:46)
[2021-10-12 00:58] VITALS: BP 137/66
[2021-10-12] MEDS: ATENOLOL 50 MG TABLET PO SCH (08:15)
[2021-10-12 08:16] VITALS: BP 106/63
[2021-10-12 16:23] VITALS: BP 108/70
[2021-10-12] MEDS: OLANZapine 10 MG TABLET PO SCH (20:29)
[2021-10-12] MEDS: BENZTROPINE MESYLATE 2 MG TABLET PO SCH (20:29)
[2021-10-13 06:53] VITALS: BP 115/78
[2021-10-13] MEDS: ATENOLOL 50 MG TABLET PO SCH (08:05)
[2021-10-13 08:26] VITALS: BP 103/66
[2021-10-13 11:01] LABS: GLUCOMETER DEV NAME(LOC) POC.BV
[2021-10-13] MEDS ORDERED: HALO100V4 IM (14:11)
[2021-10-13] MEDS ORDERED: BENZ2TAB10 PO (14:11)
[2021-10-13] MEDS ORDERED: OLAN10 PO (14:11)
[2021-10-13] MEDS ORDERED: ATEN-72 PO (15:09)
[2021-10-13 16:11] VITALS: BP 107/62
[2021-10-13] MEDS: BENZTROPINE MESYLATE 2 MG TABLET PO SCH (20:11)
[2021-10-13] MEDS: OLANZapine 10 MG TABLET PO SCH (20:11)
[2021-10-13] MEDS ORDERED: COVID-19 VACCINE, MRNA(PFIZER)/PF 30 MCG/0.3 ML VIAL IM. ONE (21:30)
== END 2021-10-13 20:15 | DRG 885 ==
LOC: EMS 20:40 → 3EC 08-21 11:46 → B3A 08-28 15:12
PROVIDERS: ADMIT Psychiatry & Neurology Psychiatry; ATTEND Psychiatry & Neurology Psychiatry
DX: F25.9 Schizoaffective disorder, unspecified (principal); Z20.822 Contact with and (suspected) exposure to COVID-19; F41.8 Other specified anxiety disorders; E03.9 Hypothyroidism, unspecified; G47.00 Insomnia, unspecified; I10 Essential (primary) hypertension; J44.9 Chronic obstructive pulmonary disease, unspecified; K59.00 Constipation, unspecified; Z88.0 Allergy status to penicillin; Z88.8 Allergy status to other drugs, medicaments and biological substances; Z79.899 Other long term (current) drug therapy; Z71.6 Tobacco abuse counseling; Z72.0 Tobacco use
CPT/HCPCS: 0004A; 80048; 80053; 80061; 81003; 83735; 84100; 84443; 85007; 85025; 85027; 87081; 91300; 99285; G0480; J1631

== ENCOUNTER 2021-11-07 13:34 | Inpatient (IN) | payer MEDICARE, MEDICAID ==
[~2021-11-07] VITALS: Ht 157.5 cm; Wt 75.4 kg
[~2021-11-07 13:34] MED LIST changes: +ATEN-72 PO; +HALO100V4 IM; +OLAN10 PO; -OLAN10TA74 PO
[2021-11-07] MEDS ORDERED: LORazepam 2 MG/ML VIAL IM ONE ×2 (14:30→15:45)
[2021-11-07] MEDS ORDERED: DiphenhydrAMINE HCL 50 MG/ML VIAL IM ONE (14:30)
[2021-11-07] MEDS ORDERED: HALOPERIDOL LACTATE 5 MG/ML VIAL IM ONE ×2 (14:30→15:45)
[2021-11-07] MEDS ORDERED: HALOPERIDOL 5 MG TABLET PO PRN (15:15)
[2021-11-07 15:25] LABS: BASOPHILS % (AUTO) 0.2 % (0.0-2.0); EOSINOPHILS % (AUTO) 0.9 % (1.0-6.0); HEMATOCRIT 40.5 % (41-53); HEMOGLOBIN 13.4 g/dL (13.5-17.5); LYMPHOCYTES # (AUTO) 1.3 K/uL (1.0-4.8); LYMPHOCYTES % (AUTO) 11.1 % (22.0-44.0); MEAN CORPUSCULAR HEMOGLOBIN 29.6 pg (26.0-34.0); MEAN CORPUSCULAR VOLUME 90 fL (80-100); MONOCYTES # (AUTO) 1.2 K/uL (0.1-1.0); MONOCYTES % (AUTO) 9.7 % (2.0-9.0); NEUTROPHILS # (AUTO) 9.5 K/uL (1.8-7.7); NEUTROPHILS % (AUTO) 78.1 % (40.0-70.0); PLATELET COUNT (AUTO) 278 K/uL (150-450); RED BLOOD CELL COUNT(AUTO) 4.51 MIL/uL (4.50-5.90); RED CELL DISTRIBUTION WIDTH 14.7 % (11.5-14.5)
[2021-11-07 15:59] LABS: ANION GAP 7 mmol/L (8-16); CALCIUM, TOTAL 8.8 mg/dL (8.8-10.5); CARBON DIOXIDE 27 mmol/L (22-29); CHLORIDE 102 mmol/L (98-107); CREATININE 0.94 mg/dL (0.60-1.30); GLOMERULAR FILTR. RATE CALC > 60 mL/min (>60); GLUCOSE,RANDOM 109 mg/dL (70-110); POTASSIUM 3.9 mmol/L (3.5-5.1); SODIUM SERUM 136 mmol/L (136-145); UREA NITROGEN, BLOOD 11 mg/dL (7-18)
[2021-11-07 16:05] LABS: ALANINE AMINOTRANSFERASE 21 U/L (12-78); ALBUMIN 3.1 g/dL (3.4-5.0); ALKALINE PHOSPHATASE 89 U/L (46-116); ASPARTATE AMINOTRANSFERASE 46 U/L (15-37); BILIRUBIN,TOTAL 0.5 mg/dL (0.1-1.0); TOTAL PROTEIN, SERUM 7.2 g/dL (6.4-8.2)
[2021-11-07 17:09] LABS: COVID AG,FIA SOURCE NASAL SWAB
[2021-11-07 17:14] LABS: APPEARANCE,URINE CLEAR (CLEAR); BILIRUBIN,URINE NEGATIVE (NEGATIVE); GLUCOSE, URINE (UA) NEGATIVE (NEGATIVE); LEUKOCYTE ESTERASE ,URINE NEGATIVE (NEGATIVE); NITRATE,URINE NEGATIVE (NEGATIVE); OCCULT BLOOD,URINE NEGATIVE (NEGATIVE); PH,URINE 5.5 (5.0-8.0); PROTEIN,URINE NEGATIVE (NEGATIVE); SPECIFIC GRAVITIY, URINE 1.014 (1.003-1.030); UROBILINOGEN,URINE <=1.0 mg/dL (<=1.0)
[2021-11-07 17:19] LABS: AMPHET/METH SCREEN,URINE NEGATIVE (NEGATIVE); BARBITURATE SCREEN, URINE NEGATIVE (NEGATIVE); BENZODIAZEPINES SCREEN,URINE NEGATIVE (NEGATIVE); CANNABINOID SCREEN,URINE NEGATIVE (NEGATIVE); COCAINE SCREEN,URINE NEGATIVE (NEGATIVE); METHADONE SCREEN, URINE NEGATIVE (NEGATIVE); OPIATE SCREEN,URINE NEGATIVE (NEGATIVE)
[2021-11-07 17:20] LABS: PHENCYCLIDINE SCREEN,URINE NEGATIVE (NEGATIVE)
[2021-11-07 21:39] VITALS: BP 128/72
[2021-11-07] MEDS ORDERED: DOCUSATE SODIUM 100 MG CAPSULE PO PRN (22:45)
[2021-11-07] MEDS ORDERED: ACETAMINOPHEN 325 MG TABLET PO PRN (22:45)
[2021-11-07] MEDS ORDERED: ALBUTEROL SULFATE HFA 90 MCG/PUFF 8 GM INHALER IH PRN (22:45)
[2021-11-07] MEDS ORDERED: LOPERAMIDE HCL 2 MG CAPSULE PO PRN (22:45)
[2021-11-07] MEDS ORDERED: ONDANSETRON HCL 4 MG TABLET PO PRN (22:45)
[2021-11-07] MEDS ORDERED: IBUPROFEN 600 MG TABLET PO PRN (22:45)
[2021-11-07] MEDS ORDERED: MAGNESIUM HYDROXIDE SUSPENSION 30 ML UDCUP PO PRN (22:45)
[2021-11-07] MEDS ORDERED: CloNIDine HCL 0.1 MG TABLET PO PRN (22:45)
[2021-11-07] MEDS ORDERED: BENZOCAINE/MENTHOL LOZENGE PO PRN (22:45)
[2021-11-07] MEDS ORDERED: MAG HYDROX/AL HYDROX/SIMETH ES 30 ML SUSPENSION UDCUP PO PRN (22:45)
[2021-11-07] MEDS ORDERED: BACITRACIN 28 GM OINTMENT TP PRN (22:45)
[2021-11-07] MEDS ORDERED: OMEPRAZOLE 20 MG CAPSULE PO PRN (22:45)
[2021-11-07] MEDS ORDERED: PETROLATUM,WHITE 28 GM JELLY TP PRN (22:45)
[2021-11-08] MEDS ORDERED: PNEUMOCOCCAL VACCINE POLYVALENT 0.5 ML VIAL [PPSV23] IM. ONE (01:15)
[2021-11-08 03:08] VITALS: BP 130/81
[2021-11-08] MEDS: LORazepam 2 MG TABLET PO PRN (08:18)
[2021-11-08] MEDS: ATENOLOL 50 MG TABLET PO SCH (08:19)
[2021-11-08 08:29] VITALS: BP 130/80
[2021-11-08] MEDS: DIVALPROEX SODIUM 500 MG DR TABLET PO SCH ×2 (09:45→17:00)
[2021-11-08] MEDS ORDERED: DiphenhydrAMINE HCL 50 MG/ML VIAL IM ONE (10:45)
[2021-11-08] MEDS ORDERED: LORazepam 2 MG/ML VIAL IM ONE ×2 (10:45→17:45)
[2021-11-08] MEDS ORDERED: HALOPERIDOL LACTATE 5 MG/ML VIAL IM ONE ×2 (10:45→17:45)
[2021-11-08 16:34] VITALS: BP 118/75
[2021-11-08] MEDS: OLANZapine 10 MG TABLET PO SCH (20:42)
[2021-11-08] MEDS: BENZTROPINE MESYLATE 2 MG TABLET PO SCH (20:42)
[2021-11-09] MEDS: LORazepam 2 MG TABLET PO PRN (06:42)
[2021-11-09] MEDS: DIVALPROEX SODIUM 500 MG DR TABLET PO SCH ×2 (08:34→17:00)
[2021-11-09] MEDS: ATENOLOL 50 MG TABLET PO SCH (08:34)
[2021-11-09] MEDS ORDERED: LORazepam 2 MG/ML VIAL IM ONE (09:00)
[2021-11-09] MEDS ORDERED: ChlorproMAZINE HCL 50 MG/2 ML AMP IM ONE (09:00)
[2021-11-09] MEDS ORDERED: ChlorproMAZINE HCL 50 MG TABLET PO PRN (12:00)
[2021-11-09 16:25] VITALS: BP 139/93
[2021-11-09] MEDS: BENZTROPINE MESYLATE 2 MG TABLET PO SCH (20:15)
[2021-11-09] MEDS: OLANZapine 10 MG TABLET PO SCH (20:15)
[2021-11-10 04:46] VITALS: BP 131/89
[2021-11-10] MEDS ORDERED: ChlorproMAZINE HCL 50 MG/2 ML AMP ONE (07:49)
[2021-11-10] MEDS ORDERED: LORazepam 2 MG/ML VIAL ONE (07:49)
[2021-11-10] MEDS ORDERED: ChlorproMAZINE HCL 50 MG/2 ML AMP IM ONE (08:00)
[2021-11-10] MEDS ORDERED: LORazepam 2 MG/ML VIAL IM ONE (08:00)
[2021-11-10] MEDS: DIVALPROEX SODIUM 500 MG DR TABLET PO SCH ×2 (08:07→16:09)
[2021-11-10] MEDS: ATENOLOL 50 MG TABLET PO SCH (08:07)
[2021-11-10 08:21] VITALS: BP 144/93
[2021-11-10 16:14] VITALS: BP 131/88
[2021-11-10] MEDS: BENZTROPINE MESYLATE 2 MG TABLET PO SCH (20:00)
[2021-11-10] MEDS: OLANZapine 10 MG TABLET PO SCH (20:01)
[2021-11-11] MEDS: DIVALPROEX SODIUM 500 MG DR TABLET PO SCH ×2 (09:00→16:20)
[2021-11-11] MEDS: ATENOLOL 50 MG TABLET PO SCH (09:00)
[2021-11-11] MEDS ORDERED: ChlorproMAZINE HCL 50 MG/2 ML AMP IM ONE (09:15)
[2021-11-11] MEDS ORDERED: LORazepam 2 MG/ML VIAL IM ONE (09:15)
[2021-11-11] MEDS ORDERED: ChlorproMAZINE HCL 50 MG/2 ML AMP ONE (09:17)
[2021-11-11] MEDS ORDERED: LORazepam 2 MG/ML VIAL ONE (09:17)
[2021-11-11 10:41] VITALS: BP 135/87
[2021-11-11 16:00] VITALS: BP 131/84
[2021-11-11] MEDS: HALOPERIDOL LACTATE 5 MG/ML VIAL IM PRN ×2 (16:19→20:02)
[2021-11-11] MEDS: OLANZapine 10 MG TABLET PO SCH (20:01)
[2021-11-11] MEDS: BENZTROPINE MESYLATE 2 MG TABLET PO SCH (20:01)
[2021-11-12 05:31] VITALS: BP 132/86
[2021-11-12 08:05] VITALS: BP 135/92
[2021-11-12] MEDS: DIVALPROEX SODIUM 500 MG DR TABLET PO SCH ×2 (09:00→17:00)
[2021-11-12] MEDS: ATENOLOL 50 MG TABLET PO SCH (09:00)
[2021-11-12] MEDS: HALOPERIDOL LACTATE 5 MG/ML VIAL IM PRN ×3 (09:27→21:04)
[2021-11-12 14:01] LABS: GLUCOMETER DEV NAME(LOC) POC.BV
[2021-11-12 16:26] VITALS: BP 123/86
[2021-11-12] MEDS: OLANZapine 10 MG TABLET PO SCH (21:00)
[2021-11-12] MEDS: BENZTROPINE MESYLATE 2 MG TABLET PO SCH (21:00)
[2021-11-13 04:55] VITALS: BP 138/84
[2021-11-13 08:38] VITALS: BP 130/78
[2021-11-13] MEDS: DIVALPROEX SODIUM 500 MG DR TABLET PO SCH ×2 (09:00→16:44)
[2021-11-13] MEDS: ATENOLOL 50 MG TABLET PO SCH (09:00)
[2021-11-13] MEDS: HALOPERIDOL LACTATE 5 MG/ML VIAL IM PRN (09:45)
[2021-11-13 16:09] VITALS: BP 140/98
[2021-11-13] MEDS: OLANZapine 10 MG TABLET PO SCH (20:02)
[2021-11-13] MEDS: BENZTROPINE MESYLATE 2 MG TABLET PO SCH (20:02)
[2021-11-14 04:20] VITALS: BP 131/82
[2021-11-14] MEDS: DIVALPROEX SODIUM 500 MG DR TABLET PO SCH ×2 (09:24→17:13)
[2021-11-14] MEDS: ATENOLOL 50 MG TABLET PO SCH (09:24)
[2021-11-14] MEDS: LORazepam 2 MG TABLET PO PRN (10:15)
[2021-11-14 10:59] VITALS: BP 128/80
[2021-11-14 16:01] VITALS: BP 140/96
[2021-11-14] MEDS: OLANZapine 10 MG TABLET PO SCH (20:56)
[2021-11-14] MEDS: BENZTROPINE MESYLATE 2 MG TABLET PO SCH (20:56)
[2021-11-14 21:25] VITALS: BP 108/73
[2021-11-15 04:01] VITALS: BP 112/68
[2021-11-15 07:33] LABS: HEMOGLOBIN 14.4 g/dL (13.5-17.5); MEAN CORPUSCULAR HEMOGLOBIN 30.7 pg (26.0-34.0); MEAN CORPUSCULAR HGB CONC 34.4 G/dL (31.0-37.0); MEAN CORPUSCULAR VOLUME 89 fL (80-100); PLATELET COUNT (AUTO) 463 K/uL (150-450); RED CELL DISTRIBUTION WIDTH 14.6 % (11.5-14.5)
[2021-11-15 08:07] VITALS: BP 140/91
[2021-11-15 08:16] LABS: ANION GAP 16 mmol/L (8-16); CALCIUM, TOTAL 9.3 mg/dL (8.8-10.5); CARBON DIOXIDE 25 mmol/L (22-29); CHLORIDE 104 mmol/L (98-107); CREATININE 0.87 mg/dL (0.60-1.30); GLOMERULAR FILTR. RATE CALC > 60 mL/min (>60); GLUCOSE,RANDOM 92 mg/dL (70-110); PHOSPHORUS 3.9 mg/dL (2.5-4.9); POTASSIUM 3.9 mmol/L (3.5-5.1); SODIUM SERUM 145 mmol/L (136-145); UREA NITROGEN, BLOOD 22 mg/dL (7-18)
[2021-11-15] MEDS: DIVALPROEX SODIUM 500 MG DR TABLET PO SCH ×2 (09:00→16:05)
[2021-11-15] MEDS: ATENOLOL 50 MG TABLET PO SCH (09:00)
[2021-11-15 09:44] LABS: BAND NEUTROPHILS % (MANUAL) 2 % (0-5); EOSINOPHILS % (MANUAL) 1 % (1-6); LYMPHOCYTES % (MANUAL) 31 % (22-44); MONOCYTES % (MANUAL) 10 % (2-9); SEGMENTED NEUTROPHILS % 56 % (40-70)
[2021-11-15 16:00] VITALS: BP 140/91
[2021-11-15] MEDS: OLANZapine 10 MG TABLET PO SCH (20:08)
[2021-11-15] MEDS: BENZTROPINE MESYLATE 2 MG TABLET PO SCH (20:47)
[2021-11-15] MEDS: ZOLPIDEM TARTRATE 10 MG TABLET PO PRN (20:47)
[2021-11-16 08:02] VITALS: BP 132/90
[2021-11-16] MEDS: DIVALPROEX SODIUM 500 MG DR TABLET PO SCH ×2 (08:20→17:00)
[2021-11-16] MEDS: ATENOLOL 50 MG TABLET PO SCH (08:21)
[2021-11-16] MEDS ORDERED: HALOPERIDOL LACTATE 5 MG/ML VIAL IM PRN (15:00)
[2021-11-16 16:31] VITALS: BP 108/70
[2021-11-16] MEDS: BENZTROPINE MESYLATE 2 MG TABLET PO SCH (20:02)
[2021-11-16] MEDS: OLANZapine 10 MG TABLET PO SCH (20:02)
[2021-11-17 04:18] VITALS: BP 100/69
[2021-11-17] MEDS: ATENOLOL 50 MG TABLET PO SCH (09:21)
[2021-11-17] MEDS: DIVALPROEX SODIUM 500 MG DR TABLET PO SCH ×2 (09:21→17:08)
[2021-11-17 09:31] VITALS: BP 110/72
[2021-11-17 16:28] VITALS: BP 108/68
[2021-11-17] MEDS: OLANZapine 10 MG TABLET PO SCH (20:44)
[2021-11-17] MEDS: BENZTROPINE MESYLATE 2 MG TABLET PO SCH (20:44)
[2021-11-18] MEDS: LORazepam 2 MG TABLET PO PRN ×2 (00:59→08:24)
[2021-11-18 04:49] VITALS: BP 122/68
[2021-11-18] MEDS: DIVALPROEX SODIUM 500 MG DR TABLET PO SCH ×2 (08:24→17:17)
[2021-11-18] MEDS: ATENOLOL 50 MG TABLET PO SCH (08:24)
[2021-11-18 11:01] VITALS: BP 124/68
[2021-11-18 16:02] VITALS: BP 118/76
[2021-11-18] MEDS: OLANZapine 10 MG TABLET PO SCH (21:25)
[2021-11-18] MEDS: BENZTROPINE MESYLATE 2 MG TABLET PO SCH (21:25)
[2021-11-19 05:04] VITALS: BP 135/78
[2021-11-19] MEDS: DIVALPROEX SODIUM 500 MG DR TABLET PO SCH ×2 (08:46→16:30)
[2021-11-19] MEDS: ATENOLOL 50 MG TABLET PO SCH (09:24)
[2021-11-19 16:25] VITALS: BP 129/82
[2021-11-19] MEDS: OLANZapine 10 MG TABLET PO SCH (20:49)
[2021-11-19] MEDS: BENZTROPINE MESYLATE 2 MG TABLET PO SCH (20:49)
[2021-11-20 00:24] VITALS: BP 144/97
[2021-11-20 08:16] LABS: GLUCOMETER DEV NAME(LOC) POC.BV
[2021-11-20 08:20] VITALS: BP 131/78
[2021-11-20] MEDS: ATENOLOL 50 MG TABLET PO SCH (08:46)
[2021-11-20] MEDS: DIVALPROEX SODIUM 500 MG DR TABLET PO SCH ×2 (08:46→16:26)
[2021-11-20] MEDS ORDERED: HALOPERIDOL LACTATE 5 MG/ML VIAL IM ONE (12:30)
[2021-11-20 16:13] VITALS: BP 124/72
[2021-11-20] MEDS: OLANZapine 10 MG TABLET PO SCH (20:07)
[2021-11-20] MEDS: BENZTROPINE MESYLATE 2 MG TABLET PO SCH (20:07)
[2021-11-21 04:57] VITALS: BP 118/68
[2021-11-21] MEDS: ATENOLOL 50 MG TABLET PO SCH (08:06)
[2021-11-21] MEDS: ASPIRIN 81 MG DR TABLET PO SCH (08:06)
[2021-11-21] MEDS: DIVALPROEX SODIUM 500 MG DR TABLET PO SCH ×2 (08:06→16:05)
[2021-11-21 09:53] VITALS: BP 139/87
[2021-11-21 16:00] VITALS: BP 112/79
[2021-11-21] MEDS: BENZTROPINE MESYLATE 2 MG TABLET PO SCH (20:52)
[2021-11-21] MEDS: OLANZapine 10 MG TABLET PO SCH (20:52)
[2021-11-22 00:25] VITALS: BP 115/75
[2021-11-22 08:05] VITALS: BP 114/78
[2021-11-22] MEDS: ATENOLOL 50 MG TABLET PO SCH (08:19)
[2021-11-22] MEDS: DIVALPROEX SODIUM 500 MG DR TABLET PO SCH ×2 (08:19→17:25)
[2021-11-22] MEDS: ASPIRIN 81 MG DR TABLET PO SCH (08:19)
[2021-11-22] MEDS ORDERED: HALOPERIDOL DECANOATE 100 MG/ML VIAL IM SCH (09:00)
[2021-11-22 16:02] VITALS: BP 118/81
[2021-11-22] MEDS: OLANZapine 10 MG TABLET PO SCH (20:20)
[2021-11-22] MEDS: BENZTROPINE MESYLATE 2 MG TABLET PO SCH (20:20)
[2021-11-23 00:12] VITALS: BP 120/70
[2021-11-23] MEDS: ATENOLOL 50 MG TABLET PO SCH (08:10)
[2021-11-23] MEDS: ASPIRIN 81 MG DR TABLET PO SCH (08:11)
[2021-11-23] MEDS: DIVALPROEX SODIUM 500 MG DR TABLET PO SCH ×2 (08:11→16:01)
[2021-11-23 09:14] VITALS: BP 119/80
[2021-11-23 16:00] VITALS: BP 123/73
[2021-11-23] MEDS: OLANZapine 10 MG TABLET PO SCH (20:41)
[2021-11-23] MEDS: BENZTROPINE MESYLATE 2 MG TABLET PO SCH (20:42)
[2021-11-24 00:25] VITALS: BP 125/79
[2021-11-24] MEDS: ATENOLOL 50 MG TABLET PO SCH (08:01)
[2021-11-24] MEDS: DIVALPROEX SODIUM 500 MG DR TABLET PO SCH ×2 (08:01→17:10)
[2021-11-24] MEDS: ASPIRIN 81 MG DR TABLET PO SCH (08:01)
[2021-11-24 09:16] VITALS: BP 124/80
[2021-11-24 10:01] LABS: GLUCOMETER DEV NAME(LOC) POC.BV
[2021-11-24] MEDS ORDERED: INFLUENZA VIRUS VACCINE QVS 2021-22 (6MO+)/PF 60 MCG/0.5 ML SYRINGE IM. ONE (13:00)
[2021-11-24] MEDS ORDERED: BENZ2TAB10 PO (13:33)
[2021-11-24] MEDS ORDERED: OLAN10 PO (13:33)
[2021-11-24] MEDS ORDERED: DIVA-112 PO (13:33)
[2021-11-24] MEDS ORDERED: HALO100V4 IM (13:33)
[2021-11-24] MEDS ORDERED: ATEN-72 PO (14:21)
[2021-11-24 16:01] VITALS: BP 135/90
[2021-11-24] MEDS: ZOLPIDEM TARTRATE 10 MG TABLET PO PRN (21:47)
[2021-11-24] MEDS: BENZTROPINE MESYLATE 2 MG TABLET PO SCH (21:47)
[2021-11-24] MEDS: OLANZapine 10 MG TABLET PO SCH (21:47)
[2021-11-25 00:01] VITALS: BP 130/86
[2021-11-25] MEDS: ATENOLOL 50 MG TABLET PO SCH (08:14)
[2021-11-25] MEDS: ASPIRIN 81 MG DR TABLET PO SCH (08:14)
[2021-11-25] MEDS: DIVALPROEX SODIUM 500 MG DR TABLET PO SCH (08:15)
[2021-11-25 08:33] VITALS: BP 128/84
== END 2021-11-25 10:56 | DRG 885 ==
LOC: EMS 13:36 → B3A 17:45
PROVIDERS: ADMIT Psychiatry & Neurology Psychiatry; ATTEND Psychiatry & Neurology Psychiatry
DX: F25.9 Schizoaffective disorder, unspecified (principal); J44.9 Chronic obstructive pulmonary disease, unspecified; I10 Essential (primary) hypertension; G47.00 Insomnia, unspecified; F41.9 Anxiety disorder, unspecified; F32.A Depression, unspecified; F19.10 Other psychoactive substance abuse, uncomplicated; F17.200 Nicotine dependence, unspecified, uncomplicated; E03.9 Hypothyroidism, unspecified; Z20.822 Contact with and (suspected) exposure to COVID-19; Z88.1 Allergy status to other antibiotic agents; Z88.0 Allergy status to penicillin; Z23 Encounter for immunization; Z71.6 Tobacco abuse counseling; Z28.21 Immunization not carried out because of patient refusal; Z71.51 Drug abuse counseling and surveillance of drug abuser
CPT/HCPCS: 74176; 80048; 80053; 81003; 83735; 84100; 85007; 85025; 85027; 85032; 87081; 90686; 99291; G0480; J1200; J1630; J1631; J2060; J3230

== ENCOUNTER 2021-11-14 18:30 | Emergency (ER) | payer MEDICARE, OTHER ==
[~2021-11-14] VITALS: Ht 162.6 cm; Wt 55.9 kg
[2021-11-14 18:53] VITALS: BP 146/67
== END 2021-11-14 20:47 | disposition home or self-care (01) ==
LOC: EMS 18:33
DX: S00.33XA Contusion of nose, initial encounter (principal); R04.0 Epistaxis; F20.9 Schizophrenia, unspecified; Z88.0 Allergy status to penicillin; Z88.1 Allergy status to other antibiotic agents; W50.0XXA Accidental hit or strike by another person, initial encounter; Y93.89 Activity, other specified; Y92.89 Other specified places as the place of occurrence of the external cause; Y99.8 Other external cause status
CPT/HCPCS: 99283